=== PATIENT | male | born 1975 | race Caucasian/White ===

== ENCOUNTER 2024-08-01 10:40 | Inpatient (IN) ==
--- NOTE | 2024-08-01 11:07 | Emergency Department Note ---
Impression & Plan Pyelonephritis of left kidney, Vomiting, Abdominal pain, Blood glucose elevated ED Provider Note NAME: SARINA DIAS Jr AGE: 49 SEX: M : 1975 ARRIVES VIA: Walk-In INFORMANT: Patient ED PROVIDER(S): Uvaldo Rene DO CHIEF COMPLAINT: Fevers, shaking chills, cough congestion HPI: Patient is a 49-year-old male with a past medical history of nephrolithiasis, diabetes who presents to the ER following having a stent placed and lasering of the stones by Dr. Motta on this on the left side. Associated with this patient was having increased pain. Thursday he started having nausea and vomiting which went into Thursday. He had fevers as high as 101 Thursday and Thursday. Fevers have abated he thinks. He has been taking Tylenol and Motrin. Thursday started with cough and congestion. No chest pain or shortness of breath. No dysuria, urgency, or frequency currently. He had his stent removed and he pulled it out on his own this weekend on Thursday. ADDITIONAL HISTORY OBTAINED: Per HPI Chronic Medical/Social Conditions Affecting Care: Per HPI PAST MEDICAL HISTORY:See Below PAST SURGICAL HISTORY:See Below FAMILY HISTORY:See Below SOCIAL HISTORY:See Below HOME MEDICATIONS:See Below ALLERGIES:See Below VITALS:See Below PHYSICAL EXAMINATION: GENERAL: Sitting up in bed, alert, well appearing, well nourished, no distress, non-toxic EYE EXAM: normal conjunctiva. OROPHARYNX: mucous membranes are moist NECK: supple, no nuchal rigidity, no adenopathy, non-tender LUNGS: Clear to auscultation. Normal chest wall mechanics HEART: no murmurs, S1 normal and S2 normal ABDOMEN: abdomen soft, non-tender, normo-active bowel sounds, no masses, no rebound or guarding. BACK: Back is symmetrical on inspection and there is no deformity, no midline tenderness, no CVA tenderness. SKIN: no rashes and no bruising UPPER EXTREMITIES: upper extremities are grossly normal. LOWER EXTREMITIES: No pitting edema. NEURO EXAM: Normal sensorium, cranial nerves II-XII grossly intact, normal speech, no gross weakness of arms, no gross weakness of legs. MEDICAL DECISION MAKING: Patient is a 49-year-old male who presents ER for the above-stated complaint. IV was established and blood work was obtained. Labs show no significant leukocytosis or anemia. BMP with slightly elevated glucose at 173. Lactate was normal. Mag normal. T. bili mildly up at 1.4. LFTs were unremarkable. Troponin was negative. Pro-Ander significantly elevated at 5.3. UA consistent with UTI. Patient was given 2 g of IV Rocephin as well as IV fluids. CT abdomen pelvis shows pyelonephritis. This is consistent with patient's diffuse myalgias, arthralgias and fevers. Patient was discussed with the hospitalist for further evaluation management treatment. While in the ER patient was given morphine, Zofran and Phenergan. He was also given Toradol. Consults/Care Managements Discussions: Per [facility] Triage Nursing notes reviewed. Limited review of prior medical records performed Vital Signs: reviewed and remarkable for tachy Differential diagnosis: Differential diagnoses includes but is not limited to gastritis, peptic ulcer disease, GERD, gallbladder disease, pancreatitis, small bowel obstruction, appendicitis, diverticulitis, hernia, urinary tract infection, torsion, perforation, trauma, infectious. ER treatment provided: See below Diagnostics interpreted by me include EKG and cardiac monitoring as listed below: -Cardiac Monitoring: An order was placed for continuous cardiac monitoring. The monitor shows a rate of 101 with sinus rhythm. -ECG: Sinus tachycardia rate of 104 Normal axis No PVCs Right bundle branch block QTc 523 -Laboratory studies:Interpreted by me as stated above in MDM and shown below. Imaging studies: Xrays: As interpreted by me: Portable AP upright 1 view of the chest shows no focal M-Trate CTs show: CT abdomen pelvis as described above Procedures:none Critical Care: None Past Med/Surg History Problem List (Updated 08/01/24 @ 15:39 by Uvaldo Rene DO) Blood glucose elevated (Acute) Abdominal pain (Acute) Vomiting (Acute) Headache Pyelonephritis of left kidney (Acute) Hypogonadism in male Vitamin D deficiency Seasonal allergies Low testosterone Type 2 diabetes mellitus Lumbar radiculopathy, chronic Nephrolithiasis Medical History Obesity Low testosterone Degenerative disc disease Kidney stones Diabetes mellitus, type 2 History of stomach ulcers as a child Hx of migraines Sleep apnea cpap Hypertension Hyperlipemia Fatty liver Surgical History S/P cystoscopy with ureteral stent placement 06/30/24, [facility], left side History of colonoscopy History of tooth extraction History of tonsillectomy and adenoidectomy History of repair of hiatal hernia History of cholecystectomy H/O medial meniscus repair of right knee Family History Mother Drug abuse Ovarian cancer Diabetes Anxiety Depression Heart disease Kidney disease Lung disease Hypertension Father Prostate cancer Alzheimer disease Other No family history of adverse response to anesthesia Social History Smoking Status: Former smoker Tobacco Type: Cigarettes Age Started Using Tobacco: 19; Age Quit Using Tobacco: 32; packs per day: 0.25; Second Hand Exposure: No; Do You Dip or Chew Tobacco: No; Hx Alcohol Use: Yes Alcohol type: beer Alcohol Intake Frequency: Monthly or Less Hx Substance Use: Yes Last Used Substance Other:: 1 week ago; advised Preferred Language: [place]an Communication Ability: Effective Telecommunications Equipment Installer Required: No Beliefs That Will Affect Care: None marital status: Current Living Situation: Spouse 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 Feels Safe at Home: Yes Childhood Exposure to Second-Hand Smoke: No Diet: regular caffeine: Yes during the past year weight has: decreased > 10 lbs Dental Care, Regularly: Yes Physical Activity Frequency: 1-2 Times per Week Seatbelt Use: always Sunscreen Use: No Do you think of yourself as: straight/heterosexual Gender Identity: Male Assistive Devices: Contacts and CPAP Allergies Allergies Allergy/AdvReac Type Severity Reaction Status Date / Time Penicillins Allergy Intermediate Hives, Verified 08/01/24 13:26 nausea vancomycin Allergy Intermediate hives, Verified 08/01/24 13:26 vomitting Home Meds Home Medications Medication Instructions Recorded Confirmed azelastine 137 mcg (0.1 %) nasal 1 spray intranasal BID PRN 04/22/24 08/01/24 spray Congestion atorvastatin 20 mg tablet 20 mg PO QAM 06/21/24 08/01/24 losartan 25 mg tablet 25 mg PO QAM 06/21/24 08/01/24 fluticasone propionate 50 2 spray intranasal DAILY 06/30/24 08/01/24 mcg/actuation nasal spray,suspension acetaminophen 500 mg tablet 500 mg PO Q6H PRN Pain 08/01/24 08/01/24 dulaglutide 0.75 mg/0.5 mL 0.75 mg subcut WK 08/01/24 08/01/24 subcutaneous pen injector (Trulicity) ibuprofen 200 mg tablet 200 mg PO Q6H PRN Pain 08/01/24 08/01/24 levalbuterol tartrate 45 1 - 2 puff inhalation Q4H PRN 08/01/24 08/01/24 mcg/actuation aerosol inhaler Wheezing testosterone cypionate 100 mg/mL 100 mg subcut WK 08/01/24 08/01/24 intramuscular oil Previous Rx's Medication Instructions Recorded ergocalciferol (vitamin D2) 1,250 1,250 mcg PO WK #10 caps 07/04/24 mcg (50,000 unit) capsule (Vitamin D2) ciprofloxacin HCl 500 mg tablet 500 mg PO BID #14 tabs 07/31/24 (Cipro) tamsulosin 0.4 mg capsule 0.4 mg PO DAILY #30 caps 07/31/24 Results & Data (ED) Vital Signs Vital Signs - 24 hr 08/01/24 10:50 08/01/24 11:29 08/01/24 11:29 Temperature 36.9 C Temperature Source Oral Pulse Rate 106 H 101 H Pulse Rate [Apical] Pulse Rate from SpO2 Sensor Respiratory Rate 16 Respiratory Effort / Characteristics Non-Labored Spontaneous Respiratory Depth Normal Respiratory Pattern Blood Pressure 123/84 129/81 Blood Pressure [Right Arm] Blood Pressure Mean 97 88 Blood Pressure Mean [Right Arm] Blood Pressure Position [Right Arm] Pulse Oximetry 96 Oxygen Delivery Method Room Air Sepsis Recent Fever Within 48 Hours Yes Sepsis New/Unexplained Change in Mental Status No Sepsis Action Taken by Nursing No Action Required 08/01/24 11:31 08/01/24 11:36 08/01/24 11:45 Temperature Temperature Source Pulse Rate 94 H 94 H Pulse Rate [Apical] Pulse Rate from SpO2 Sensor 94 H 94 H Respiratory Rate 25 H 25 H Respiratory Effort / Characteristics Respiratory Depth Respiratory Pattern Blood Pressure 119/77 Blood Pressure [Right Arm] Blood Pressure Mean 90 Blood Pressure Mean [Right Arm] Blood Pressure Position [Right Arm] Pulse Oximetry 94 95 Oxygen Delivery Method Sepsis Recent Fever Within 48 Hours Sepsis New/Unexplained Change in Mental Status Sepsis Action Taken by Nursing 08/01/24 11:57 08/01/24 12:00 08/01/24 12:12 Temperature Temperature Source Pulse Rate 89 92 H Pulse Rate [Apical] Pulse Rate from SpO2 Sensor 90 92 H Respiratory Rate 23 22 Respiratory Effort / Characteristics Respiratory Depth Respiratory Pattern Blood Pressure 118/82 Blood Pressure [Right Arm] Blood Pressure Mean 93 Blood Pressure Mean [Right Arm] Blood Pressure Position [Right Arm] Pulse Oximetry 94 96 Oxygen Delivery Method Sepsis Recent Fever Within 48 Hours Sepsis New/Unexplained Change in Mental Status Sepsis Action Taken by Nursing 08/01/24 12:30 08/01/24 12:33 08/01/24 12:39 Temperature Temperature Source Pulse Rate 91 H 88 Pulse Rate [Apical] Pulse Rate from SpO2 Sensor 90 88 Respiratory Rate 25 H 23 Respiratory Effort / Characteristics Respiratory Depth Respiratory Pattern Blood Pressure 120/78 Blood Pressure [Right Arm] Blood Pressure Mean 98 Blood Pressure Mean [Right Arm] Blood Pressure Position [Right Arm] Pulse Oximetry 95 95 Oxygen Delivery Method Sepsis Recent Fever Within 48 Hours Sepsis New/Unexplained Change in Mental Status Sepsis Action Taken by Nursing 08/01/24 12:50 08/01/24 12:54 08/01/24 12:57 Temperature Temperature Source Pulse Rate 94 H 93 H Pulse Rate [Apical] 101 H Pulse Rate from SpO2 Sensor 92 H Respiratory Rate 24 20 25 H Respiratory Effort / Characteristics Respiratory Depth Normal Respiratory Pattern Blood Pressure Blood Pressure [Right Arm] 123/77 Blood Pressure Mean Blood Pressure Mean [Right Arm] 92 Blood Pressure Position [Right Arm] Pulse Oximetry 99 95 96 Oxygen Delivery Method Room Air Room Air Sepsis Recent Fever Within 48 Hours Sepsis New/Unexplained Change in Mental Status Sepsis Action Taken by Nursing 08/01/24 13:00 08/01/24 13:00 08/01/24 13:15 Temperature 37.2 C Temperature Source Oral Pulse Rate Pulse Rate [Apical] 92 H 100 H Pulse Rate from SpO2 Sensor Respiratory Rate 23 23 Respiratory Effort / Characteristics Non-Labored Spontaneous Non-Labored Spontaneous Respiratory Depth Normal Normal Respiratory Pattern Regular Regular Blood Pressure 127/80 Blood Pressure [Right Arm] 127/80 120/83 Blood Pressure Mean 94 Blood Pressure Mean [Right Arm] 95 95 Blood Pressure Position [Right Arm] Semi-fowlers Semi-fowlers Pulse Oximetry 97 96 Oxygen Delivery Method Room Air Room Air Sepsis Recent Fever Within 48 Hours Sepsis New/Unexplained Change in Mental Status Sepsis Action Taken by Nursing 08/01/24 13:15 08/01/24 13:15 08/01/24 13:30 Temperature Temperature Source Pulse Rate 97 H Pulse Rate [Apical] Pulse Rate from SpO2 Sensor 97 H Respiratory Rate 28 H Respiratory Effort / Characteristics Respiratory Depth Respiratory Pattern Blood Pressure 120/83 120/83 141/86 H Blood Pressure [Right Arm] Blood Pressure Mean 95 91 110 Blood Pressure Mean [Right Arm] Blood Pressure Position [Right Arm] Pulse Oximetry 97 Oxygen Delivery Method Sepsis Recent Fever Within 48 Hours Sepsis New/Unexplained Change in Mental Status Sepsis Action Taken by Nursing 08/01/24 13:33 08/01/24 13:39 08/01/24 13:45 Temperature Temperature Source Pulse Rate 95 H 99 H Pulse Rate [Apical] Pulse Rate from SpO2 Sensor 96 H 99 H Respiratory Rate 25 H 20 Respiratory Effort / Characteristics Respiratory Depth Respiratory Pattern Blood Pressure 132/87 Blood Pressure [Right Arm] Blood Pressure Mean 105 Blood Pressure Mean [Right Arm] Blood Pressure Position [Right Arm] Pulse Oximetry 96 96 Oxygen Delivery Method Sepsis Recent Fever Within 48 Hours Sepsis New/Unexplained Change in Mental Status Sepsis Action Taken by Nursing 08/01/24 13:48 08/01/24 13:57 08/01/24 14:00 Temperature Temperature Source Pulse Rate 96 H 100 H Pulse Rate [Apical] 102 H Pulse Rate from SpO2 Sensor 96 H 99 H Respiratory Rate 23 29 H 20 Respiratory Effort / Characteristics Non-Labored Spontaneous Respiratory Depth Normal Respiratory Pattern Regular Blood Pressure Blood Pressure [Right Arm] 128/79 Blood Pressure Mean Blood Pressure Mean [Right Arm] 95 Blood Pressure Position [Right Arm] Semi-fowlers Pulse Oximetry 95 94 92 Oxygen Delivery Method Room Air Sepsis Recent Fever Within 48 Hours Sepsis New/Unexplained Change in Mental Status Sepsis Action Taken by Nursing 08/01/24 14:00 08/01/24 14:30 08/01/24 14:45 Temperature Temperature Source Pulse Rate Pulse Rate [Apical] 105 H 106 H Pulse Rate from SpO2 Sensor Respiratory Rate 18 22 Respiratory Effort / Characteristics Non-Labored Spontaneous Respiratory Depth Normal Respiratory Pattern Regular Blood Pressure 128/79 Blood Pressure [Right Arm] 123/79 127/93 Blood Pressure Mean 94 Blood Pressure Mean [Right Arm] 93 104 Blood Pressure Position [Right Arm] Semi-fowlers Pulse Oximetry 94 96 Oxygen Delivery Method Room Air Sepsis Recent Fever Within 48 Hours Sepsis New/Unexplained Change in Mental Status Sepsis Action Taken by Nursing 08/01/24 14:50 08/01/24 15:34 Temperature 36.9 C Temperature Source Oral Pulse Rate 105 H Pulse Rate [Apical] Pulse Rate from SpO2 Sensor Respiratory Rate Respiratory Effort / Characteristics Respiratory Depth Respiratory Pattern Blood Pressure Blood Pressure [Right Arm] Blood Pressure Mean Blood Pressure Mean [Right Arm] Blood Pressure Position [Right Arm] Pulse Oximetry Oxygen Delivery Method Sepsis Recent Fever Within 48 Hours Sepsis New/Unexplained Change in Mental Status Sepsis Action Taken by Nursing Laboratory Data 08/01/24 11:23 08/01/24 11:23 Lab Results 08/01/24 08/01/24 Range/Units 11:08 11:23 WBC 8.39 (4.8-10.8) K/ul RBC 4.82 (4.70-6.10) M/uL Hgb 13.6 L (14.0-18.0) g/dl Hct 41.1 L (42.0-52.0) % MCV 85.3 (80.0-100.0) fL MCH 28.2 (25.0-34.0) pg MCHC 33.1 (32.0-36.0) g/dL RDW Std Deviation 42.9 (36.4-46.3) fL RDW Coeff of Jonathan 13.8 (11.5-14.5) % Plt Count 183 (130-400) K/uL MPV 10.4 (9.4-12.4) fL Immature Gran % (Auto) 0.5 % Neut % (Auto) 89.8 % Lymph % (Auto) 3.7 % [place] % (Auto) 5.8 % Eos % (Auto) 0.1 % Baso % (Auto) 0.1 % Neut # (Auto) 7.53 H (1.40-6.50) K/uL Lymph # (Auto) 0.31 L (1.20-3.40) K/uL [place] # (Auto) 0.49 (0.11-0.59) K/uL Eos # (Auto) 0.01 (0.00-0.50) K/uL Baso # (Auto) 0.01 (0.00-0.20) K/uL Immature Gran # (Auto) 0.04 (0.01-0.20) K/uL Sodium 137 (136-145) mmol/L Potassium 3.6 (3.5-5.1) mmol/L Chloride 103 (98-107) mmol/L Carbon Dioxide 24 (21-32) mmol/L Anion Gap 10 (3-11) BUN 12 (6-23) mg/dl Creatinine 1.02 (0.6-1.4) mg/dl Est Cr Clr Drug Dosing 122.5 ml/min eGFR 91.22 BUN/Creatinine Ratio 11.8 (10-20) Glucose 173 H (70-99(Fasting)) mg/dl Lactate 1.3 (0.4-2.0) mmol/L Calcium 9.4 (8.6-10.3) mg/dl Magnesium 1.9 (1.7-2.4) mg/dl Total Bilirubin 1.4 H (0.2-1.0) mg/dl Direct Bilirubin 0.4 H (0-0.2) mg/dl AST 21 (13-39) U/L ALT 24 (7-52) U/L Alkaline Phosphatase 85 (34-104) U/L Troponin I High Sens 15.1 (0-20) pg/ml Total Protein 7.5 (6.0-8.3) gm/dl Albumin 3.9 (3.4-5.0) gm/dl Procalcitonin 5.53 H (0-0.5) ng/ml Urine Color Dark Yellow Urine Appearance Clear (Clear) Urine pH 6.0 (4.5-7.5) Ur Specific [place] 1.023 (1.000-1.030) Urine Protein 3+ H (Negative) Urine Glucose (UA) Trace H (Negative) Urine Ketones 4+ H (Negative) Urine Blood 3+ H (Negative) Urine Nitrite Positive A (Negative) Urine Bilirubin Negative (Negative) Urine Urobilinogen Negative (Negative) Ur Leukocyte Esterase Negative (Negative) Urine WBC (Auto) 21-50 H (0-5) /hpf Urine RBC (Auto) >20 H (0-2) /hpf U Hyaline Cast (Auto) 0-2 (0-2) /lpf U Epithel Cells (Auto) 6-10 H (0-2) /hpf Urine Bacteria (Auto) None Seen (None Seen) Administered Medications Discontinued Medications Diphenhydramine HCl (Diphenhydramine 50 Mg/Ml Vial) 50 mg IV NOW STA Stop: 08/01/24 12:15 Last Admin: 08/01/24 13:09 Dose: 50 mg Documented By: TREY Hydromorphone HCl (Hydromorphone Inj 0.5 Mg/0.5 Ml Syr) 0.5 mg IV NOW STA Stop: 08/01/24 14:53 Last Admin: 08/01/24 14:56 Dose: 0.5 mg Documented By: TREY Sodium Chloride (Nss) 1,000 mls @ 999 mls/hr IV .Q1H1M JULIAN Stop: 08/01/24 13:15 Last Infusion: 08/01/24 13:50 Dose: Infused Documented By: Admin: 08/01/24 13:00 Dose: 999 mls/hr Documented By: Infusion: 08/01/24 13:00 Dose: Infused Documented By: Admin: 08/01/24 11:45 Dose: 999 mls/hr Documented By: JUAN JOSE Ceftriaxone Sodium (Rocephin) 2,000 mg in 50 mls @ 100 mls/hr IV NOW STA Stop: 08/01/24 13:03 Last Infusion: 08/01/24 13:50 Dose: Infused Documented By: Admin: 08/01/24 13:12 Dose: 100 mls/hr Documented By: TREY Promethazine HCl (Phenergan) 25 mg in 51 mls @ 204 mls/hr IV NOW STA Stop: 08/01/24 14:08 Last Infusion: 08/01/24 15:01 Dose: Infused Documented By: Admin: 08/01/24 14:41 Dose: 204 mls/hr Documented By: TREY Ioversol (Optiray 320 100ml) 92 ml IV ONCE ONE Stop: 08/01/24 12:06 Last Admin: 08/01/24 12:06 Dose: 92 ml Documented By: ESCOBAR Ketorolac Tromethamine (Ketorolac Tromethamine 15 Mg/Ml Vial) 10 mg IV NOW ONE Stop: 08/01/24 11:08 Last Admin: 08/01/24 11:44 Dose: 10 mg Documented By: JUAN JOSE Morphine Sulfate (Morphine Sulfate 4 Mg/Ml 1 Ml Carp\Vial) 4 mg IV NOW STA Stop: 08/01/24 13:31 Last Admin: 08/01/24 13:34 Dose: 4 mg Documented By: TREY Ondansetron HCl (Ondansetron Inj 2 Mg/Ml 2 Ml Vial) 4 mg IV NOW STA Stop: 08/01/24 13:31 Last Admin: 08/01/24 13:37 Dose: 4 mg Documented By: TREY Imaging Data Radiologist's Impression: Chest X-Ray 08/01/24 11:04 XR chest 1V portable CLINICAL HISTORY: Sepsis COMPARISON STUDY: None FINDINGS: Heart size and pulmonary vasculature are normal. No effusion, consolidation, or pneumothorax. IMPRESSION: No acute findings. ACT 112: Negative or not required by law. Electronically signed by: Sarina Deutsch M.D. 08/01/2024 11:16 AM Abdomen/Pelvis CT 08/01/24 11:[address] WITH IV CONTRAST CT DOSE: 1518.99 mGy.cm HISTORY: Acute generalized abdominal pain with sepsis abd pain spesis TECHNIQUE: Multiaxial CT images of the abdomen and pelvis were performed following the IV administration of 92 cc of Optiray, A dose lowering technique was utilized adhering to the principles of ALARA. COMPARISON STUDY: May 12, 2024 FINDINGS: The imaged lower chest unremarkable. There is mild subsegmental bibasilar atelectasis. No pneumatosis or pneumoperitoneum. Splenomegaly, 2.7 cm in length. Unremarkable pancreas and adrenal glands. Cholecystectomy. Hepatomegaly with hepatic steatosis. Patency of the hepatic and portal veins. Unremarkable right kidney. Left nephrolithiasis includes a 5 mm nonobstructing calculus of the superior pole and a 3 mm calculus of the inferior pole. The previously noted 9 mm calculus of the inferior poles no longer present. Perinephric inflammatory stranding with patchy enhancement of the left kidney. Minimal dilation of the left renal collecting system and ureter No ureteral calculi identified. Urothelial enhancement is noted within the left renal collecting system and ureter. Mild prostamegaly. Urinary bladder wall thickening with partial distention and mild intraluminal air. No lymphadenopathy. Mild atherosclerosis of the aorta. No bowel obstruction or bowel wall thickening. Colonic diverticulosis. Normal appendix. Unremarkable soft tissues. Annular disc bulging with spondylosis causes multilevel central canal or neural foraminal narrowing within the lumbar spine. IMPRESSION: 1. Minimal left-sided hydroureteronephrosis with findings suggestive of left- sided pyelonephritis and ureteritis with associated cystitis. Correlate with urinalysis. 2. Left nephrolithiasis. 3. The previously noted 9 mm left renal calculus is no longer present. No ureteral calculi identified. 4. Colonic diverticulosis. ACT 112: Negative or not required by law. The above report was generated using voice recognition software. It may contain grammatical, syntax or spelling errors. Electronically signed by: Rios Thurston M.D. 08/01/2024 1:19 PM Discharge Plan Visit Data Chief Complaint: Flu Like Symptoms Stated Complaint: CHILLS, BODYACHES, NAUSEA, HEADACHE ED Provider: Uvaldo Rene Discharge Problem: Pyelonephritis of left kidney, Vomiting, Abdominal pain, Blood glucose elevated Forms Stand Alone Forms: My [facility] [employer] Prescriptions Prescriptions: No Action tamsulosin 0.4 mg capsule 0.4 mg PO DAILY Qty: 30 11RF ciprofloxacin HCl [Cipro] 500 mg tablet 500 mg PO BID Qty: 14 0RF Rx Instructions: Start Date 07/31/24 x7 day supply azelastine 137 mcg (0.1 %) spray,non-aerosol 1 spray intranasal BID PRN (Reason: Congestion) Rx Instructions: administer into each nostril ergocalciferol (vitamin D2) [Vitamin D2] 1,250 mcg (50,000 unit) capsule 1,250 mcg PO WK Qty: 10 0RF Rx Instructions: Thursday atorvastatin 20 mg tablet 20 mg PO QAM losartan 25 mg tablet 25 mg PO QAM fluticasone propionate 50 mcg/actuation [place],Suspension 2 spray INTRANASAL DAILY Rx Instructions: administer into each nostril acetaminophen [Tylenol Ex Str Rapid Release] 500 mg Tablet 500 mg PO Q6H PRN (Reason: Pain) ibuprofen 200 mg Tablet 200 mg PO Q6H PRN (Reason: Pain) levalbuterol tartrate 45 mcg/actuation HFA aerosol inhaler 1 - 2 puff INHALATION Q4H PRN (Reason: Wheezing) testosterone cypionate 100 mg/mL oil 100 mg subcut WK Rx Instructions: Thursday Trulicity 0.75 mg/0.5 mL pen injector 0.75 mg subcut WK Patient Comments: takes sundays Rx Instructions: Thursday Referrals Referrals: Trang Zuniga CRNP [Primary Care Provider] - Discharge Problem: Vomiting Qualifiers: Vomiting type: unspecified Nausea presence: unspecified Qualified Code(s): R 11.10 - Vomiting, unspecified Abdominal pain Qualifiers: Abdominal location: unspecified location Qualified Code(s): R10.9 - Unspecified abdominal pain
--- NOTE | 2024-08-01 11:17 | XRay Report ---
XR chest 1V portable CLINICAL HISTORY: Sepsis COMPARISON STUDY: None FINDINGS: Heart size and pulmonary vasculature are normal. No effusion, consolidation, or pneumothora x. IMPRESSION: No acute findings. ACT 112: Negative or not required by law. Electronically signed by: Ulices Deutsch M.D. 08/01/2024 11:16 AM
[2024-08-01] MEDS: KETOROLAC TROMETHAMINE 15 MG/ML VIAL IV ONE (11:44)
[2024-08-01] MEDS: SODIUM CHLORIDE 0.9% 1,000 ML IV SCH (11:45)
[2024-08-01 11:47] LABS: Basophils # (auto) 0.01 K/uL (0.00-0.20); Basophils % (auto) 0.1 %; Eosinophils # (auto) 0.01 K/uL (0.00-0.50); Eosinophils % (auto) 0.1 %; Hematocrit (blood only) 41.1 % (42.0-52.0); Hemoglobin 13.6 g/dl (14.0-18.0); Immature Granulocytes # (auto) 0.04 K/uL (0.01-0.20); Immature Granulocytes % (auto) 0.5 %; Lymphocytes # (auto) 0.31 K/uL (1.20-3.40); Lymphocytes % (auto) 3.7 %; Mean Corpuscular Hemoglobin 28.2 pg (25.0-34.0); Mean Corpuscular Hgb Conc 33.1 g/dL (32.0-36.0); Mean Corpuscular Volume 85.3 fL (80.0-100.0); Mean Platelet Volume 10.4 fL (9.4-12.4); Monocytes # (auto) 0.49 K/uL (0.11-0.59); Monocytes % (auto) 5.8 %; Neutrophils # (auto) 7.53 K/uL (1.40-6.50); Neutrophils % (auto) 89.8 %; Platelet Count 183 K/uL (130-400); RDW Coefficient of Variation 13.8 % (11.5-14.5); RDW Standard Deviation 42.9 fL (36.4-46.3); Red Blood Count 4.82 M/uL (4.70-6.10); White Blood Count 8.39 K/ul (4.8-10.8)
[2024-08-01 11:54] LABS: Albumin Level 3.9 gm/dl (3.4-5.0); BUN Creatinine Ratio 11.8 (10-20); Bilirubin Direct 0.4 mg/dl (0-0.2); Bilirubin,Total 1.4 mg/dl (0.2-1.0); Calcium 9.4 mg/dl (8.6-10.3); Creatinine Clr Calc Pharmacy 122.5 ml/min; Magnesium 1.9 mg/dl (1.7-2.4); Potassium 3.6 mmol/L (3.5-5.1); Total Protein 7.5 gm/dl (6.0-8.3)
[2024-08-01 11:58] LABS: Appearance Urine Clear (Clear); Bacteria Urine Automated None Seen (None Seen); Bilirubin Urine Negative (Negative); Blood Urine 3+ (Negative); Cast Urine Automated 0-2 /lpf (0-2); Color Urine Dark Yellow; Glucose Urine UA Trace (Negative); Ketones Urine 4+ (Negative); Leukocyte Esterase Urine Negative (Negative); Nitrite Urine Positive (Negative); Protein Urine 3+ (Negative); RBC Urine Automated >20 /hpf (0-2); Specific Gravity Urine 1.023 (1.000-1.030); Urobilinogen Urine Negative (Negative); WBC Urine Automated 21-50 /hpf (0-5)
[2024-08-01 12:00] LABS: Troponin I High Sensitivity 15.1 pg/ml (0-20)
[2024-08-01] MEDS: OPTIRAY 320 100ml IV ONE (12:06)
[2024-08-01] MEDS: diphenhydrAMINE 50 MG/ML VIAL IV STA (13:09)
[2024-08-01] MEDS: cefTRIAXone SODIUM 2,000 MG/50 ML BAG IV STA (13:12)
--- NOTE | 2024-08-01 13:20 | CT Scan Report ---
ABDOMEN AND PELVIS CT WITH IV CONTRAST CT DOSE: 1518.99 mGy.cm HISTORY: Acute generalized abdominal pain with sepsis abd pain spesis TECHNIQUE: Multiaxial CT images of the abdomen and pelvis were performed following the IV administrat ion of 92 cc of Optiray, A dose lowering technique was utilized adhering to the principles of ALARA. COMPARISON STUDY: May 12, 2024 FINDINGS: The imaged lower chest unremarkable. There is mild subsegmental bibasilar atelectasis. No p neumatosis or pneumoperitoneum. Splenomegaly, 2.7 cm in length. Unremarkable pancreas and adrenal gla nds. Cholecystectomy. Hepatomegaly with hepatic steatosis. Patency of the hepatic and portal veins. Unremarkable right kidney. Left nephrolithiasis includes a 5 mm nonobstructing calculus of the superi or pole and a 3 mm calculus of the inferior pole. The previously noted 9 mm calculus of the inferior poles no longer present. Perinephric inflammatory stranding with patchy enhancement of the left kidne y. Minimal dilation of the left renal collecting system and ureter No ureteral calculi identified. Ur othelial enhancement is noted within the left renal collecting system and ureter. Mild prostamegaly. Urinary bladder wall thickening with partial distention and mild intraluminal air. No lymphadenopathy . Mild atherosclerosis of the aorta. No bowel obstruction or bowel wall thickening. Colonic diverticulosis. Normal appendix. Unremarkable soft tissues. Annular disc bulging with spondylosis causes multilevel central canal or neural foramin al narrowing within the lumbar spine. IMPRESSION: 1. Minimal left-sided hydroureteronephrosis with findings suggestive of left-sided pyelonephritis and ureteritis with associated cystitis. Correlate with urinalysis. 2. Left nephrolithiasis. 3. The previously noted 9 mm left renal calculus is no longer present. No ureteral calculi identified . 4. Colonic diverticulosis. ACT 112: Negative or not required by law. The above report was generated using voice recognition software. It may contain grammatical, syntax o r spelling errors. Electronically signed by: Rios Thurston M.D. 08/01/2024 1:19 PM
[2024-08-01] MEDS: MoRPHine SULFATE 4 MG/ML 1 ML CARP\\VIAL IV STA (13:34)
--- NOTE | 2024-08-01 13:34 | History & Physical Report ---
Date of Service August 01, 2024 Assessment & Plan (1) Pyelonephritis of left kidney: (2) Headache: (3) Type 2 diabetes mellitus: (4) Hypertension: Plan This patient is a 49-year-old male with a history of nephrolithiasis, HTN, DM2, HLD, vitamin D deficiency, asthma, and fatty liver who recently had left ureteral stent exchange and laser lithotripsy of a ureteral stone on 07/28. He presents to the ER with 3 days of fevers/chills, intractable nausea/vomiting, severe left flank pain, and posterior headache as well as frontal headache. He removed his left ureteral stent 1 day prior and this did help with some of the spasm pains he was having in the left flank. He is admitted for left-sided acute pyelonephritis. #Acute left pyelonephritis/UTI/recent ureterolithiasis with ureteral stent removal/N/V-with left flank pain, pyelonephritis and cystitis seen on CT A/P, recent left ureteral stone treatment and stent removal. Was treated with 2 doses of Cipro prior to admission hence the lack of bacteria on the UA but still with significant leukocyte esterase and WBCs as well as some blood. With fevers at home but no leukocytosis, normal lactate, but procalcitonin elevated at 5.5. He may also have an acute sinusitis or the headache may be related to dehydration and infection. Nonetheless, ceftriaxone also treats for acute sinusitis. N/V related to pyelonephritis and pain -Admit to medical/surgical unit -Consult urology given recent procedures and ongoing mild left ureteral hydronephrosis and infection -Continue ceftriaxone 2000 mg IV every 24 hours for both pyelonephritis and possible sinusitis -Give 2 more liters of LR at 125 mL/h for hydration as he is dry and unable to keep much down by mouth -Give clear liquids diet only for now until nausea improves -Add on Sudafed as needed for sinus congestion -IV Zofran and Compazine as needed for nausea; Tylenol and IV Dilaudid as needed for pain and headache -Follow urine and blood cultures -Continue home tamsulosin #HTN/HLD-no acute issues -Continue home atorvastatin, losartan #DM2/hypogonadism-no acute issues, has been on the same dose of Trulicity for many years and last dose was on 07/31. Also takes IM testosterone. Hgb A1c well-controlled 6.8% very recently -NovoLog supplemental insulin -Hold home Trulicity and testosterone #Vitamin D deficiency-no acute issues -Hold home vitamin D #Fatty liver/mild hyperbilirubinemia-T. bili mildly elevated 1.4 with evidence of fatty liver and mild splenomegaly on CT A/P. Has a history of cholecystectomy. No RUQ pain. No EtOH use -Needs weight loss, low carbohydrate diet -Follow LFTs #Mild asthma/FERNANDEZ/allergic rhinitis-no acute issues except possible sinusitis. CXR negative -Levalbuterol as needed -Continue Flonase and azelastine nasal sprays -Ceftriaxone for acute sinusitis as above -CPAP at bedtime DVT prophylaxis-Lovenox SQ, SCDs Disposition-admit to medical/surgical unit History of Present Illness Chief Complaint: Fever/flank pain Primary Care Provider: ALANNA Chilel This patient is a 49-year-old male with a history of nephrolithiasis, HTN, DM2, HLD, vitamin D deficiency, and fatty liver who recently had left ureteral stent exchange and laser lithotripsy of a ureteral stone on 07/28. He presents to the ER with 3 days of fevers/chills, intractable nausea/vomiting, left flank pain, and posterior headache as well as frontal headache. He removed his left ureteral stent 1 day prior and this did help with some of the spasm pains he was having in the left flank. He has been taking ibuprofen and Tylenol [id number]-cpeee for the fevers and pain as well as headache which has helped keep the temperature down but not helping much with the pain. He has not been able to eat more than 1 piece of dry toast in the last 48 hours and keeps down small sips of water at times. He is making urine but does have hematuria. He is moving his bowels and no diarrhea present. The urologist called him in Cipro of which he took 2 doses prior to presentation in the ER. He is blowing some mucus out of his nose. In the ER, he was given IV morphine, Zofran, 2 L IV fluids, IV Toradol, Phenergan, and ceftriaxone. He was found to have an abnormal urinalysis consistent with infection. CT A/P showed left pyelonephritis and mild left ureteral hydronephrosis; CXR negative. He will be admitted for left-sided acute pyelonephritis. Allergies Allergy/AdvReac Type Severity Reaction Status Date / Time Penicillins Allergy Intermediate Hives, Verified 08/01/24 13:26 nausea vancomycin Allergy Intermediate hives, Verified 08/01/24 13:26 vomitting Home Medications Medication Instructions Recorded Confirmed Type azelastine 137 mcg (0.1 %) nasal 1 spray intranasal BID PRN 04/22/24 08/01/24 History spray Congestion atorvastatin 20 mg tablet 20 mg PO QAM 06/21/24 08/01/24 History losartan 25 mg tablet 25 mg PO QAM 06/21/24 08/01/24 History fluticasone propionate 50 2 spray intranasal DAILY 06/30/24 08/01/24 History mcg/actuation nasal spray,suspension ergocalciferol (vitamin D2) 1,250 1,250 mcg PO WK #10 caps 07/04/24 08/01/24 Rx mcg (50,000 unit) capsule (Vitamin D2) ciprofloxacin HCl 500 mg tablet 500 mg PO BID #14 tabs 07/31/24 08/01/24 Rx (Cipro) tamsulosin 0.4 mg capsule 0.4 mg PO DAILY #30 caps 07/31/24 08/01/24 Rx acetaminophen 500 mg tablet 500 mg PO Q6H PRN Pain 08/01/24 08/01/24 History dulaglutide 0.75 mg/0.5 mL 0.75 mg subcut WK 08/01/24 08/01/24 History subcutaneous pen injector (Trulicity) ibuprofen 200 mg tablet 200 mg PO Q6H PRN Pain 08/01/24 08/01/24 History levalbuterol tartrate 45 1 - 2 puff inhalation Q4H PRN 08/01/24 08/01/24 History mcg/actuation aerosol inhaler Wheezing testosterone cypionate 100 mg/mL 100 mg subcut WK 08/01/24 08/01/24 History intramuscular oil Past Med/Surg History Problem List (Updated 08/01/24 @ 15:08 by Jena Mendez MD) Headache Pyelonephritis of left kidney Hypogonadism in male Vitamin D deficiency Seasonal allergies Low testosterone Type 2 diabetes mellitus Lumbar radiculopathy, chronic Nephrolithiasis Medical History Obesity Low testosterone Degenerative disc disease Kidney stones Diabetes mellitus, type 2 History of stomach ulcers as a child Hx of migraines Sleep apnea cpap Hypertension Hyperlipemia Fatty liver Surgical History S/P cystoscopy with ureteral stent placement 06/30/24, [facility], left side History of colonoscopy History of tooth extraction History of tonsillectomy and adenoidectomy History of repair of hiatal hernia History of cholecystectomy H/O medial meniscus repair of right knee Family History Mother Drug abuse Ovarian cancer Diabetes Anxiety Depression Heart disease Kidney disease Lung disease Hypertension Father Prostate cancer Alzheimer disease Other No family history of adverse response to anesthesia Social History Smoking Status: Former smoker Tobacco Type: Cigarettes Age Started Using Tobacco: 19; Age Quit Using Tobacco: 32; packs per day: 0.25; Second Hand Exposure: No; Do You Dip or Chew Tobacco: No; Hx Alcohol Use: Yes Alcohol type: beer Alcohol Intake Frequency: Monthly or Less Hx Substance Use: Yes Last Used Substance Other:: 1 week ago; advised Preferred Language: Sammarinese Communication Ability: Effective Clipman Required: No Beliefs That Will Affect Care: None marital status: Current Living Situation: Spouse 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 Feels Safe at Home: Yes Childhood Exposure to Second-Hand Smoke: No Diet: regular caffeine: Yes during the past year weight has: decreased > 10 lbs Dental Care, Regularly: Yes Physical Activity Frequency: 1-2 Times per Week Seatbelt Use: always Sunscreen Use: No Do you think of yourself as: straight/heterosexual Gender Identity: Male Assistive Devices: Contacts and CPAP Review of Systems Review of Systems: All systems reviewed & are unremarkable except as noted in HPI & below Physical Exam Constitutional: WD/WN, vitals as above Eyes: PERRL, conjunctivae normal, anicteric sclerae ENMT: external ear and nose normal, oropharynx normal Neck: trachea midline, no thyromegaly Positive TTP over bilateral posterior neck and occiput right greater than left, no rigidity, able to touch chin to chest in seated position Respiratory: normal respiratory effort, lungs clear to auscultation Cardiovascular: RRR, no murmur, no edema Chest (Breasts): Chest: normal inspection of chest Gastrointestinal (Abdomen): Inspection/Auscultation: abdomen normal to inspection and normal bowel sounds; abdomen not distended Percussion/Palpation: + abdomen tender (Mild in LUQ and LLQ without rebound or guarding) and abdomen soft Musculoskeletal: Extremities: extremities normal to inspection; no cyanosis and no clubbing Skin: no rashes, warm and dry Neurologic: moves all extremities and awake; no focal motor deficits Psychiatric: A+Ox3, euthymic affect Lymphatic: no lymphedema Results & Data Results & Data Vital Signs (Past 12 Hours) Vital Signs Temp Pulse Pulse Resp BP BP Pulse Ox 08/01/24 13:15 97 H 28 H 120/83 97 08/01/24 13:15 100 H 23 120/83 96 08/01/24 13:00 127/80 08/01/24 13:00 37.2 C 92 H 23 127/80 97 08/01/24 12:57 93 H 25 H 96 08/01/24 12:54 94 H 20 95 08/01/24 12:50 101 H 24 123/77 99 08/01/24 12:39 88 23 95 08/01/24 12:33 91 H 25 H 95 08/01/24 12:30 120/78 08/01/24 12:12 92 H 22 96 08/01/24 12:00 118/82 08/01/24 11:57 89 23 94 08/01/24 11:45 94 H 25 H 95 08/01/24 11:36 94 H 25 H 94 08/01/24 11:31 119/77 08/01/24 11:29 129/81 08/01/24 11:29 101 H 08/01/24 10:50 36.9 C 106 H 16 123/84 96 O2 Del Method 08/01/24 13:15 08/01/24 13:15 Room Air 08/01/24 13:00 08/01/24 13:00 Room Air 08/01/24 12:57 08/01/24 12:54 Room Air 08/01/24 12:50 Room Air 08/01/24 12:39 08/01/24 12:33 08/01/24 12:30 08/01/24 12:12 08/01/24 12:00 08/01/24 11:57 08/01/24 11:45 08/01/24 11:36 08/01/24 11:31 08/01/24 11:29 08/01/24 11:29 08/01/24 10:50 Room Air Laboratory Results CBC, CMP, troponin, procalcitonin Diagnostic Findings Chest x-ray and CT abdomen/pelvis reviewed ECG Additional Comments: ECG on 08/01/2024 at 11:11 AM with sinus tachycardia, rate 104, RBBB, no ischemic changes Code Status & VTE Plan Code Status Full code VTE Prophylaxis Plan VTE Prophylaxis will be ordered: Yes PG Care Time/CCT Total # of Minutes Spent Total Time Spent with Patient: Total time spent is greater than 50% in coordination of care (as documented) at patient's floor/unit and/or counseling patient: Coding Level of Care Code 35358 INT INP/OBS CARE 3/75MIN Diagnoses Pyelonephritis of left kidney N12 Headache R51.9 Type 2 diabetes mellitus E11.9 Primary hypertension I10 Hypertension type: primary hypertension (4) Hypertension Hypertension type: primary hypertension Qualified Code(s): I10 - Essential (primary) hypertension
[2024-08-01] MEDS: ONDANSETRON INJ 2 MG/ML 2 ML VIAL IV STA (13:37)
--- NOTE | 2024-08-01 14:40 | Electrocardiogram Report ---
Test Reason : Blood Pressure : */* mmHG Vent. Rate : 104 BPM Atrial Rate : 104 BPM P-R Int : 142 ms QRS Dur : 152 ms QT Int : 398 ms P-R-T Axes : 43 55 37 degrees QTcB Int : 523 ms Sinus tachycardia Right bundle branch block Abnormal ECG When compared with ECG of 30-Jun-2024 08:50, Vent. rate has increased by 44 bpm Right bundle branch block has replaced Non-specific intra-ventricular conduction block Confirmed by Jaswant Zavaleta ([id number]) on 08/01/2024 2:39:34 PM Referred By: Confirmed By: Jaswant Zavaleta
[2024-08-01] MEDS: PROMETHAZINE 25 MG/51 ML BAG IV STA (14:41)
--- NOTE | 2024-08-01 14:54 | Urology Consultation ---
Date of Consultation August 01, 2024 Assessment & Plan (1) Pyelonephritis of left kidney: 49-year-old male admitted for left pyelonephritis after recent left ureteroscopy and stone treatment; tethered stent removed on 07/31/24. Patient currently afebrile, mild tachycardia, normotensive Lab work reviewedcreatinine 1.02, no leukocytosis Urinalysis suggestive of infection with positive nitrates, RBCs, WBCs; negative for bacteria, but recently started on PO Ciprofloxacin yesterday Urine and blood cultures are pending Continue broad-spectrum antibiotics and narrow per sensitivity data when available CT abdomen pelvis suggestive of left pyelonephritis, no focal obstruction No acute intervention at this time Monitor voiding and bladder scan prn Continue supportive care, antibiotics, and medical management per hospital medicine will follow History of Present Illness Reason for Consultation: pyelonephritis, recent lithotripsy, stent removal. Requesting Physician: Dr. Mendez Attending Physician: Jena Mendez MD History of Present Illness This is a 49-year-old male who follows with urology for nephrolithiasis. He underwent left ureteroscopy on 06/30/2024 which identified a tight UPJ and stent was placed at that time. He returned to the OR for cystoscopy, left ureteroscopy, laser destruction of stone and left ureteral stent exchange on 07/28/24. He presented to the emergency department today for evaluation of nausea, vomiting and fever. On arrival to ED, he was afebrile, tachycardic, normotensive. Lab work showed no leukocytosis (WBC 8.39), neutrophils 7.53, hemoglobin 13.6, creatinine 1.02, procalcitonin 5.53. Urinalysis showed 3+ blood, positive nitrates, 21-50 WBC, >20 RBC, 6-10 epithelial cells, no bacteria seen. Urine and blood cultures obtained. Workup included CT abdomen pelvis with IV contrast which shows minimal left sided hydroureteronephrosis with findings suggestive of left pyelonephritis and ureteritis with associated cystitis. Left nephrolithiasis. Previously noted 9 mm left renal calculus no longer present. No ureteral calculi identified. ED course: IV fluids, Rocephin, diphenhydramine, ondansetron, ketorolac and morphine. He is admitted to the hospital medicine service for further management. Urology is consulted for pyelonephritis, recent lithotripsy, stent removal. Patient seen and examined in the emergency department. present. He reports having flank discomfort in the days following surgery. He reports developing symptoms of nausea, vomiting, and fever (Tmax ~101)/chills since 2 days ago. Also reports headache and congestion. Urologist enterprise solutions architect sent him course of Ciprofloxacin, but he had difficulty keeping it down due to nausea and vomiting. He removed his tethered ureteral stent per instruction yesterday. He reports that flank discomfort has improved since stent removal. He is voiding spontaneously. He has noted some hematuria, no dysuria. Allergies Allergy/AdvReac Type Severity Reaction Status Date / Time Penicillins Allergy Intermediate Hives, Verified 08/01/24 13:26 nausea vancomycin Allergy Intermediate hives, Verified 08/01/24 13:26 vomitting Home Medications Medication Instructions Recorded Confirmed Type azelastine 137 mcg (0.1 %) nasal 1 spray intranasal BID PRN 04/22/24 08/01/24 History spray Congestion atorvastatin 20 mg tablet 20 mg PO QAM 06/21/24 08/01/24 History losartan 25 mg tablet 25 mg PO QAM 06/21/24 08/01/24 History fluticasone propionate 50 2 spray intranasal DAILY 06/30/24 08/01/24 History mcg/actuation nasal spray,suspension ergocalciferol (vitamin D2) 1,250 1,250 mcg PO WK #10 caps 07/04/24 08/01/24 Rx mcg (50,000 unit) capsule (Vitamin D2) ciprofloxacin HCl 500 mg tablet 500 mg PO BID #14 tabs 07/31/24 08/01/24 Rx (Cipro) tamsulosin 0.4 mg capsule 0.4 mg PO DAILY #30 caps 07/31/24 08/01/24 Rx acetaminophen 500 mg tablet 500 mg PO Q6H PRN Pain 08/01/24 08/01/24 History dulaglutide 0.75 mg/0.5 mL 0.75 mg subcut WK 08/01/24 08/01/24 History subcutaneous pen injector (Trulicity) ibuprofen 200 mg tablet 200 mg PO Q6H PRN Pain 08/01/24 08/01/24 History levalbuterol tartrate 45 1 - 2 puff inhalation Q4H PRN 08/01/24 08/01/24 History mcg/actuation aerosol inhaler Wheezing testosterone cypionate 100 mg/mL 100 mg subcut WK 08/01/24 08/01/24 History intramuscular oil Patient History Medical History Obesity Low testosterone Degenerative disc disease Kidney stones Diabetes mellitus, type 2 History of stomach ulcers as a child Hx of migraines Sleep apnea cpap Hypertension Hyperlipemia Fatty liver Surgical History S/P cystoscopy with ureteral stent placement 06/30/24, [facility], left side History of colonoscopy History of tooth extraction History of tonsillectomy and adenoidectomy History of repair of hiatal hernia History of cholecystectomy H/O medial meniscus repair of right knee Family History Mother Drug abuse Ovarian cancer Diabetes Anxiety Depression Heart disease Kidney disease Lung disease Hypertension Father Prostate cancer Alzheimer disease Other No family history of adverse response to anesthesia Social History Smoking Status: Former smoker Tobacco Type: Cigarettes Age Started Using Tobacco: 19; Age Quit Using Tobacco: 32; packs per day: 0.25; Second Hand Exposure: No; Do You Dip or Chew Tobacco: No; Hx Alcohol Use: Yes Alcohol type: beer Alcohol Intake Frequency: Monthly or Less Hx Substance Use: Yes Last Used Substance Other:: 1 week ago; advised Preferred Language: Bengali Communication Ability: Effective [employer]visor [employer] Required: No Beliefs That Will Affect Care: None marital status: Current Living Situation: Spouse 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 Feels Safe at Home: Yes Childhood Exposure to Second-Hand Smoke: No Diet: regular caffeine: Yes during the past year weight has: decreased > 10 lbs Dental Care, Regularly: Yes Physical Activity Frequency: 1-2 Times per Week Seatbelt Use: always Sunscreen Use: No Do you think of yourself as: straight/heterosexual Gender Identity: Male Assistive Devices: Contacts and CPAP Review of Systems Review of Systems: All systems reviewed & are unremarkable except as noted in HPI & below Physical Exam Constitutional: well developed and well nourished; no acute distress Respiratory: normal respiratory effort; no respiratory distress and no labored breathing Gastrointestinal (Abdomen): Inspection/Auscultation: abdomen normal to inspection Musculoskeletal: Head/Neck/Chest: normocephalic Neurologic: moves all extremities and awake Psychiatric: Orientation: alert and oriented x 3 Results & Data Vital Signs (Past 12 Hours) Vital Signs Temp Pulse Pulse Resp BP BP Pulse Ox 08/01/24 14:30 105 H 18 123/79 94 08/01/24 14:00 128/79 08/01/24 14:00 102 H 20 128/79 92 08/01/24 13:57 100 H 29 H 94 08/01/24 13:48 96 H 23 95 08/01/24 13:45 132/87 08/01/24 13:39 99 H 20 96 08/01/24 13:33 95 H 25 H 96 08/01/24 13:30 141/86 H 08/01/24 13:15 120/83 08/01/24 13:15 97 H 28 H 120/83 97 08/01/24 13:15 100 H 23 120/83 96 08/01/24 13:00 127/80 08/01/24 13:00 37.2 C 92 H 23 127/80 97 08/01/24 12:57 93 H 25 H 96 08/01/24 12:54 94 H 20 95 08/01/24 12:50 101 H 24 123/77 99 08/01/24 12:39 88 23 95 08/01/24 12:33 91 H 25 H 95 08/01/24 12:30 120/78 08/01/24 12:12 92 H 22 96 08/01/24 12:00 118/82 08/01/24 11:57 89 23 94 08/01/24 11:45 94 H 25 H 95 08/01/24 11:36 94 H 25 H 94 08/01/24 11:31 119/77 08/01/24 11:29 129/81 08/01/24 11:29 101 H 08/01/24 10:50 36.9 C 106 H 16 123/84 96 O2 Del Method 08/01/24 14:30 Room Air 08/01/24 14:00 08/01/24 14:00 Room Air 08/01/24 13:57 08/01/24 13:48 08/01/24 13:45 08/01/24 13:39 08/01/24 13:33 08/01/24 13:30 08/01/24 13:15 08/01/24 13:15 08/01/24 13:15 Room Air 08/01/24 13:00 08/01/24 13:00 Room Air 08/01/24 12:57 08/01/24 12:54 Room Air 08/01/24 12:50 Room Air 08/01/24 12:39 08/01/24 12:33 08/01/24 12:30 08/01/24 12:12 08/01/24 12:00 08/01/24 11:57 08/01/24 11:45 08/01/24 11:36 08/01/24 11:31 08/01/24 11:29 08/01/24 11:29 08/01/24 10:50 Room Air PG Care Time/CCT Total # of Minutes Spent Total Time Spent with Patient: Total time spent is greater than 50% in coordination of care (as documented) at patient's floor/unit and/or counseling patient: Coding Level of Care Code 36937 IN/OBS CONSULT LVL 4,60M Diagnoses Pyelonephritis of left kidney N12
[2024-08-01] MEDS: HYDROmorphone INJ 0.5 MG/0.5 ML SYR IV STA (14:56)
[2024-08-01] MEDS: ACETAMINOPHEN 500 MG TAB PO STA (17:05)
[2024-08-01] MEDS ORDERED: GLUCAGON FOR INJ 1 MG VIAL SQ PRN (17:36)
[2024-08-01] MEDS ORDERED: DEXTROSE 50% 50 ML SYRINGE IV PRN (17:36)
[2024-08-01] MEDS ORDERED: GLUCOSE 40% GEL 15 GM TUBE PO PRN (17:36)
[2024-08-01] MEDS ORDERED: GLUCOSE 10 TAB/TUBE PO PRN (17:36)
[2024-08-01] MEDS ORDERED: CARBOHYDRATES FOR HYPOGLYCEMIA PO PRN (17:36)
[2024-08-01] MEDS ORDERED: POLYETHYLENE (MIRALAX) 17 GM PACK PO PRN (17:36)
[2024-08-01] MEDS ORDERED: ALUMINUM/MAGNESIUM SUSP 30 ML UDC PO PRN (17:36)
[2024-08-01] MEDS ORDERED: MAGNESIUM HYDROXIDE SUSP 30 ML UDC PO PRN (17:36)
[2024-08-01] MEDS ORDERED: MELATONIN 3 MG TAB PO PRN (17:36)
[2024-08-01] MEDS ORDERED: LEVALBUTEROL TARTRATE 15 GM HFA.AER.AD INH PRN (17:36)
[2024-08-01] MEDS: HYDROmorphone INJ 0.5 MG/0.5 ML SYR IV PRN (18:27)
[2024-08-01] MEDS: LACTATED RINGER'S 1,000 ML IV SCH (18:30)
[2024-08-01] MEDS: INSULIN ASPART PER UNIT CHARGE SC SCH (18:42)
[2024-08-01] MEDS: ENOXAPARIN INJ 40 MG/0.4 ML SYR SQ SCH (21:03)
[2024-08-01] MEDS: AZELASTINE HCL 0.1% NASAL 200 SPRAYS/27,400 MCG BTL NAE PRN (21:04)
[2024-08-01] MEDS: PSEUDOEPHEDRINE HCL 30 MG TAB PO PRN (22:20)
[2024-08-01] MEDS: ONDANSETRON INJ 2 MG/ML 2 ML VIAL IV PRN (23:41)
[2024-08-02] MEDS: ACETAMINOPHEN 500 MG TAB PO PRN (02:01)
[2024-08-02 07:42] LABS: Basophils # (auto) 0.02 K/uL (0.00-0.20); Basophils % (auto) 0.2 %; Eosinophils # (auto) 0.05 K/uL (0.00-0.50); Eosinophils % (auto) 0.5 %; Hematocrit (blood only) 39.1 % (42.0-52.0); Hemoglobin 12.6 g/dl (14.0-18.0); Immature Granulocytes # (auto) 0.06 K/uL (0.01-0.20); Immature Granulocytes % (auto) 0.6 %; Lymphocytes # (auto) 1.12 K/uL (1.20-3.40); Lymphocytes % (auto) 12.1 %; Mean Corpuscular Hemoglobin 27.9 pg (25.0-34.0); Mean Corpuscular Hgb Conc 32.2 g/dL (32.0-36.0); Mean Corpuscular Volume 86.7 fL (80.0-100.0); Mean Platelet Volume 10.1 fL (9.4-12.4); Monocytes % (auto) 10.8 %; Neutrophils # (auto) 6.99 K/uL (1.40-6.50); Neutrophils % (auto) 75.8 %; Platelet Count 187 K/uL (130-400); RDW Coefficient of Variation 14.3 % (11.5-14.5); RDW Standard Deviation 45.3 fL (36.4-46.3); Red Blood Count 4.51 M/uL (4.70-6.10); White Blood Count 9.24 K/ul (4.8-10.8)
[2024-08-02 08:01] LABS: Albumin Level 3.6 gm/dl (3.4-5.0); BUN Creatinine Ratio 14.2 (10-20); Bilirubin Direct 0.1 mg/dl (0-0.2); Bilirubin,Total 0.8 mg/dl (0.2-1.0); Calcium 8.7 mg/dl (8.6-10.3); Creatinine Clr Calc Pharmacy 118.8 ml/min; Potassium 3.4 mmol/L (3.5-5.1); Total Protein 7.1 gm/dl (6.0-8.3)
[2024-08-02] MEDS: HYDROmorphone INJ 0.5 MG/0.5 ML SYR IV PRN ×2 (08:05→18:09)
[2024-08-02] MEDS: PROCHLORPERAZINE 10 MG in SYRINGE 8 ML IV PRN (08:05)
--- NOTE | 2024-08-02 08:33 | CT Scan Report ---
CT head/brain wo con CLINICAL HISTORY: severe headache. TECHNIQUE: Multiple axial CT images of the head were obtained without contrast. A dose lowering tech nique was utilized adhering to the principles of ALARA. CT DOSE: 1281.91 mGy.cm COMPARISON: None FINDINGS: No intracranial hemorrhage seen. No mass effect, midline shift, or hydrocephalus. No skull fracture seen. Visualized paranasal sinuses and mastoid air cells are clear. IMPRESSION: No acute findings. ACT 112: Negative or not required by law. The above report was generated using voice recognition software. It may contain grammatical, syntax o r spelling errors. Electronically signed by: Ulices Deutsch M.D. 08/02/2024 8:32 AM
--- NOTE | 2024-08-02 08:35 | CT Scan Report ---
SINUS CT HISTORY: Acute headache with facial pain and reported sinus disease sinus headache, pressure,fever TECHNIQUE: Multiaxial CT images of the paranasal sinuses were performed and reformatted in the garcia l plane without the use of contrast. A dose lowering technique was utilized adhering to the principl es of BARB. COMPARISON: Head CT of same day FINDINGS: Frontal sinuses and frontal ethmoidal recesses are clear. Note is made of a metopic suture. Moderate mucosal thickening of the ethmoid air cells, right greater than left. Minimal mucosal thick ening of the inferior right maxillary sinus. The left maxillary sinus is clear. Sphenoid sinuses and sinus outflow tracts are clear. The mastoid air cells are clear. The bilateral ostiomeatal units are patent. Minimal rightward bowin g of the nasal septum. The orbits are unremarkable. IMPRESSION: 1. Mild mucosal thickening of the ethmoid air cells and inferior right maxillary sinus. 2. Patent sinus outflow tracts. ACT 112: Negative or not required by law. Electronically signed by: Rios Thurston M.D. 08/02/2024 8:33 AM
[2024-08-02] MEDS: TAMSULOSIN HCL 0.4 MG CAP PO SCH (08:51)
[2024-08-02] MEDS: LOSARTAN POTASSIUM 25 MG TAB PO SCH (08:51)
[2024-08-02] MEDS: ATORVASTATIN 20 MG TAB PO SCH (08:52)
[2024-08-02] MEDS: FLUTICASONE PROPIONATE NA SPR 16 GM BTL NAE SCH (08:53)
[2024-08-02] MEDS: POTASSIUM CHLORIDE / WTR 10 MEQ/100 ML PLCT IV ONE (08:59)
--- NOTE | 2024-08-02 09:42 | Urology Progress Note ---
Date of Service August 02, 2024 Assessment & Plan (1) Pyelonephritis of left kidney: Plan: 49-year-old male admitted for left pyelonephritis after recent left ureteroscopy and stone treatment; tethered stent removed on 07/31/24. Patient currently afebrile (Tmax 37.9 yesterday evening), hemodynamically stable Subjectively feeling better overall, but continues to have headache, nausea and fever/chills Lab work reviewedcreatinine 1.06, no leukocytosis Urine and blood cultures are pending Continue broad-spectrum antibiotics and narrow per sensitivity data when available CT suggestive of left pyelonephritis, no obstruction No acute intervention at this time Continue with supportive care, antibiotics, and medical management per hospital medicine will follow Admission and Anticipated Discharge Date Admission Date: August 01, 2024 Subjective Patient seen and examined at bedside this morning. He reports feeling some improvement today. Reports sweats and chills overnight. Continues to have some nausea. Flank pain improved. Continues to have headache. He is voiding spontaneously, no dysuria. Review of Systems Constitutional: as per Subjective / HPI Genitourinary: + as per Subjective / HPI Physical Exam Constitutional: well developed and well nourished; no acute distress Respiratory: normal respiratory effort; no respiratory distress and no labored breathing Gastrointestinal (Abdomen): Inspection/Auscultation: abdomen normal to inspection Musculoskeletal: Head/Neck/Chest: normocephalic Neurologic: moves all extremities and awake Psychiatric: Orientation: alert and oriented x 3 Results & Data Vital Signs (Past 12 Hours) Vital Signs Temp Pulse Resp BP Pulse Ox O2 Del Method 08/02/24 06:59 37.1 C 98 H 20 142/91 H 97 Room Air 08/01/24 22:33 36.5 C 80 18 132/81 99 Room Air PG Care Time/CCT Total # of Minutes Spent Total Time Spent with Patient: Total time spent is greater than 50% in coordination of care (as documented) at patient's floor/unit and/or counseling patient: Coding Level of Care Code 34586 SUB INP/OBS CARE 06/04MIN Diagnoses Pyelonephritis of left kidney N12
[2024-08-02] MEDS: cefTRIAXone SODIUM 2,000 MG/50 ML BAG IV SCH (12:21)
--- NOTE | 2024-08-02 14:22 | Hospitalist Progress Note ---
Date of Service August 02, 2024 Assessment & Plan (1) Pyelonephritis of left kidney: (2) Headache: (3) Type 2 diabetes mellitus: (4) Hypertension: Plan This patient is a 49-year-old male with a history of nephrolithiasis, HTN, DM2, HLD, vitamin D deficiency, asthma, and fatty liver who recently had left ureteral stent exchange and laser lithotripsy of a ureteral stone on 07/28. He presents to the ER with 3 days of fevers/chills, intractable nausea/vomiting, severe left flank pain, and posterior headache as well as frontal headache. He removed his left ureteral stent 1 day prior and this did help with some of the spasm pains he was having in the left flank. He is admitted for left-sided acute pyelonephritis. #Acute left pyelonephritis/UTI/recent ureterolithiasis with ureteral stent removal/N/V/Acute sinusitis/Headache-with left flank pain, pyelonephritis and cystitis seen on CT A/P, recent left ureteral stone treatment and stent removal. Was treated with 2 doses of Cipro prior to admission hence the lack of bacteria on the UA but still with significant leukocyte esterase and WBCs as well as some blood. The Cipro may have also caused sterility of urine and blood cxs as no growth to date. With fevers but no leukocytosis, normal lactate, and procalcitonin elevated at 5.5. He also has an acute sinusitis with headache which may be related also to dehydration and infection. Nonetheless, ceftriaxone also treats for acute sinusitis. N/V related to pyelonephritis and pain is now improving with IV compazine and IVFs Consult urology given recent procedures and ongoing mild left ureteral hydronephrosis and infection--> appreciated-recommends ongoing treatment as no obstruction, no need for intervention -Continue ceftriaxone 2000 mg IV every 24 hours for both pyelonephritis and acute sinusitis -advance diet to DMII -continue on Sudafed as needed for sinus congestion -IV Zofran and Compazine as needed for nausea; Tylenol and IV Dilaudid as needed for pain and headache-increase Dilaudid to 1mg IV q4h prn -continue to follow urine and blood cultures -Continue home tamsulosin #HTN/HLD-no acute issues -Continue home atorvastatin, losartan #DM2/hypogonadism-no acute issues, has been on the same dose of Trulicity for many years and last dose was on 07/31. Also takes IM testosterone. Hgb A1c well-controlled 6.8% very recently -continue NovoLog supplemental insulin -Hold home Trulicity and testosterone -adv to ADA diet #Vitamin D deficiency-no acute issues -Hold home vitamin D #Fatty liver/mild hyperbilirubinemia-T. bili mildly elevated 1.4 with evidence of fatty liver and mild splenomegaly on CT A/P. Has a history of cholecystectomy. No RUQ pain. No EtOH use. TBili down to normal now -Needs weight loss, low carbohydrate diet -Follow LFTs as outpt #Mild asthma/FERNANDEZ/allergic rhinitis-no acute issues except acute sinusitis. CXR negative -Levalbuterol as needed -Continue Flonase and azelastine nasal sprays -Ceftriaxone for acute sinusitis as above -CPAP at bedtime DVT prophylaxis-Lovenox SQ, SCDs Disposition-continued stay medical/surgical unit, possible discharge to home on 08/03 if BCxs remain no growth and fevers resolved, tolerating diet Admission and Anticipated Discharge Date Admission Date: August 01, 2024 Anticipated date of discharge: 08/03/24 Subjective Pt had dry heaves and nausea through the night along with a fever and chills. Headache was severe this morning along with posterior neck and head pain. Finally feeling much better after higher dose of dilaudid and received IV compazine. Moved his bowels this AM. Pain in flank and abdomen improved. Review of Systems Review of Systems: All systems reviewed & are unremarkable except as noted in HPI & below Physical Exam Constitutional: WD/WN, vitals as above Neck: trachea midline, no thyromegaly Respiratory: normal respiratory effort, lungs clear to auscultation Cardiovascular: RRR, no murmur, no edema Chest (Breasts): Chest: normal inspection of chest Gastrointestinal (Abdomen): Inspection/Auscultation: abdomen normal to inspection and normal bowel sounds; abdomen not distended Percussion/Palpation: abdomen soft; abdomen nontender and no CVA tenderness Musculoskeletal: Extremities: extremities normal to inspection; no cyanosis and no clubbing Skin: no rashes, warm and dry Neurologic: moves all extremities and awake; no focal motor deficits Psychiatric: A+Ox3, euthymic affect Lymphatic: no lymphedema Results & Data Results & Data Vital Signs (Past 12 Hours) Vital Signs Temp Pulse Resp BP Pulse Ox O2 Del Method 08/02/24 13:39 37.4 C 90 18 130/84 94 Room Air 08/02/24 11:19 36.9 C 91 H 17 132/77 92 Room Air 08/02/24 06:59 37.1 C 98 H 20 142/91 H 97 Room Air Laboratory Results CBC, CMP, urine and blood cxs reviewed PG Care Time/CCT Total # of Minutes Spent Total Time Spent with Patient: Total time spent is greater than 50% in coordination of care (as documented) at patient's floor/unit and/or counseling patient: Coding Level of Care Code 15849 SUB INP/OBS CARE 2/35MIN Diagnoses Pyelonephritis of left kidney N12 Headache R51.9 Type 2 diabetes mellitus E11.9 Primary hypertension I10 Hypertension type: primary hypertension (4) Hypertension Hypertension type: primary hypertension Qualified Code(s): I10 - Essential (primary) hypertension
[2024-08-03 06:49] LABS: A calco-baum cmplx NotReported Not Detected (NotDetected); Bact fragilis Not Reported Not Detected (NotDetected); Blood Culture Id Panel See PCR Comment (NotDetected); C auris Not Reported Not Detected (NotDetected); CTX-M Resistant Gene DETECTED (NotDetected); Calbicans Not Reported Not Detected (NotDetected); Candida glabrata Not Reported Not Detected (NotDetected); Candida krusei Not Reported Not Detected (NotDetected); Cneoformans/gatti Not Reported Not Detected (NotDetected); Cparapsilosis Not Reported Not Detected (NotDetected); E cloacae compx Not Reported Not Detected (NotDetected); Efaecalis Not Reported Not Detected (NotDetected); Efaecium Not Reported Not Detected (NotDetected); Enterobacterales DETECTED (NotDetected); Enterobacterales Not Reported DETECTED (NotDetected); Escherichia coli Not Reported DETECTED (NotDetected); H influenzae Not Reported Not Detected (NotDetected); IMP Resistant Gene Not Detected (NotDetected); K aerogenes Not Reported Not Detected (NotDetected); KPC Resistant Gene Not Detected (NotDetected); Koxytoca Not Reported Not Detected (NotDetected); Kpneumoniae grp Not Reported Not Detected (NotDetected); Lmonocyt Not Reported Not Detected (NotDetected); N meningitidis Not Reported Not Detected (NotDetected); NDM Resistant Gene Not Detected (NotDetected); OXA 48 Like Resistant Gene Not Detected (NotDetected); P aeruginosa Not Reported Not Detected (NotDetected); Proteus spp Not Reported Not Detected (NotDetected); Salmonella spp Not Reported Not Detected (NotDetected); Staph lugdunensis Not Reported Not Detected (NotDetected); Staph spp. Not Reported Not Detected (NotDetected); Staphaureus Not Reported Not Detected (NotDetected); Staphepi Not Reported Not Detected (NotDetected); Stenmaltophilia Not Reported Not Detected (NotDetected); Strep agal(GrpB) Not Reported Not Detected (NotDetected); Strep pneum Not Reported Not Detected (NotDetected); Strep pyog (GrpA) Not Reported Not Detected (NotDetected); Strep spp Not Reported Not Detected (NotDetected); VIM Resistant Gene Not Detected (NotDetected); mcr-1 Colistin Resistant Gene Not Detected (NotDetected)
[2024-08-03 08:15] LABS: Basophils # (auto) 0.03 K/uL (0.00-0.20); Basophils % (auto) 0.3 %; Eosinophils # (auto) 0.11 K/uL (0.00-0.50); Hematocrit (blood only) 34.9 % (42.0-52.0); Hemoglobin 11.6 g/dl (14.0-18.0); Immature Granulocytes # (auto) 0.07 K/uL (0.01-0.20); Immature Granulocytes % (auto) 0.7 %; Lymphocytes # (auto) 1.16 K/uL (1.20-3.40); Lymphocytes % (auto) 10.9 %; Mean Corpuscular Hemoglobin 28.3 pg (25.0-34.0); Mean Corpuscular Hgb Conc 33.2 g/dL (32.0-36.0); Mean Corpuscular Volume 85.1 fL (80.0-100.0); Mean Platelet Volume 10.1 fL (9.4-12.4); Monocytes # (auto) 1.24 K/uL (0.11-0.59); Monocytes % (auto) 11.6 %; Neutrophils # (auto) 8.05 K/uL (1.40-6.50); Neutrophils % (auto) 75.5 %; Platelet Count 204 K/uL (130-400); RDW Coefficient of Variation 14.2 % (11.5-14.5); RDW Standard Deviation 43.9 fL (36.4-46.3); White Blood Count 10.66 K/ul (4.8-10.8)
[2024-08-03 08:33] LABS: BUN Creatinine Ratio 13.5 (10-20); Calcium 8.3 mg/dl (8.6-10.3); Creatinine Clr Calc Pharmacy 141.4 ml/min; Potassium 3.2 mmol/L (3.5-5.1)
[2024-08-03] MEDS: ERTAPENEM 1000MG 1,000 MG/10 ML SYR IV SCH (08:37)
--- NOTE | 2024-08-03 09:36 | Infectious Disease Consult ---
Date of Consultation August 03, 2024 Assessment & Plan (1) Pyelonephritis of left kidney: (2) E coli bacteremia: Plan Problems: #L pyelonephritis/ureteritis #L hydroureteronephrosis #E coli bacteremia #Nephrolithiasis s/p L ureteral stent (06/30), L ureteral stent exchange and laser lithotripsy (07/28) Micro: 08/01 BCx x2: GNRs in 1/2 sets. Biofire +ESBL E coli 08/01 UCx: NG Abx: Ertapenem 08/03 - present Ceftriaxone 08/01 - 08/02 49 yo M with history of HTN, DM2, HLD, fatty liver, nephrolithiasis s/p L ureteral stent (06/30/24), then L ureteral stent exchange and laser lithotripsy (07/28/24) who presented on 08/01 with 3 days of fevers, chills, intractable N/V, found to have L hydroureteronephrosis with L pyelonephritis/ureteritis, c/b ESBL E coli bacteremia. Pt states he took an antibiotic prior to removal of his ureteral stent on 07/31, but forgot the name of it, perhaps TMP/SMX. He got in contact with Urology on Thursday night and was prescribed ciprofloxacin, which he took. On presentation, pt was afebrile, HR 106. Labs showed WBC 8.39, procalcitonin 5.53. UA with 21-50 WBCs. Blood cultures collected. CT AP with IV contrast with minimal L sided hydroureteronephrosis with findings suggestive of L sided pyelonephritis and ureteritis with associated cystitis, L nephrolithiasis. Pt initially started on ceftriaxone. Blood cultures grew GNRs in 1/4 sets, with Biofire + ESBL E coli, so antibiotics were switched to ertapenem on 08/03. Recommendations: - Continue ertapenem 1 g q24h - Follow-up ESBL E coli sensitivities to assess whether there are PO antibiotic options on discharge Will continue to follow. Consultation Information Consultation was provided via telemedicine using two-way real-time interactive telecommunication between the patient and the telemedicine provider. For the duration of the visit, the provider was performing the assessment from a different facility than the patient. This includesuse of bluetooth stethoscope forauscultationperformed by the telepresenter that the telemedicine provider can hear if described in the physical exam. [employer] contact information: Please call [facility] . (Phone Number For Physician Use Only) After establishing a telemedicine visit, patient was: Patient was verified with two unique identifiers, Patient/authorized rep acknowledged consent and understanding and Gave permission to continue telehealth session Time Spent with Patient: Initial => 55 min History of Present Illness Reason for Consultation: E coli bacteremia Attending Physician: Jena Mendez MD History of Present Illness 49 yo M with history of HTN, DM2, HLD, fatty liver, nephrolithiasis s/p L ureteral stent (06/30/24), then L ureteral stent exchange and laser lithotripsy (07/28/24) who presented on 08/01 with 3 days of fevers, chills, intractable N/V. Pt states he took an antibiotic prior to removal of his ureteral stent on 07/31, but forgot the name of it, perhaps TMP/SMX. He got in contact with Urology on Thursday night and was prescribed ciprofloxacin, which he took. On presentation, pt was afebrile, HR 106. Labs showed WBC 8.39, procalcitonin 5.53. UA with 21-50 WBCs. Blood cultures collected. CT AP with IV contrast with minimal L sided hydroureteronephrosis with findings suggestive of L sided pyelonephritis and ureteritis with associated cystitis, L nephrolithiasis. Pt initially started on ceftriaxone. Blood cultures grew GNRs in 1/4 sets, with Biofire + ESBL E coli, so antibiotics were switched to ertapenem on 08/03. Allergies Allergy/AdvReac Type Severity Reaction Status Date / Time Penicillins Allergy Intermediate Hives, Verified 08/01/24 13:26 nausea vancomycin Allergy Intermediate hives, Verified 08/01/24 13:26 vomitting Home Medications Medication Instructions Recorded Confirmed Type azelastine 137 mcg (0.1 %) nasal 1 spray intranasal BID PRN 04/22/24 08/01/24 History spray Congestion atorvastatin 20 mg tablet 20 mg PO QAM 06/21/24 08/01/24 History losartan 25 mg tablet 25 mg PO QAM 06/21/24 08/01/24 History fluticasone propionate 50 2 spray intranasal DAILY 06/30/24 08/01/24 History mcg/actuation nasal spray,suspension ergocalciferol (vitamin D2) 1,250 1,250 mcg PO WK #10 caps 07/04/24 08/01/24 Rx mcg (50,000 unit) capsule (Vitamin D2) ciprofloxacin HCl 500 mg tablet 500 mg PO BID #14 tabs 07/31/24 08/01/24 Rx (Cipro) tamsulosin 0.4 mg capsule 0.4 mg PO DAILY #30 caps 07/31/24 08/01/24 Rx acetaminophen 500 mg tablet 500 mg PO Q6H PRN Pain 08/01/24 08/01/24 History dulaglutide 0.75 mg/0.5 mL 0.75 mg subcut WK 08/01/24 08/01/24 History subcutaneous pen injector (Trulicity) ibuprofen 200 mg tablet 200 mg PO Q6H PRN Pain 08/01/24 08/01/24 History levalbuterol tartrate 45 1 - 2 puff inhalation Q4H PRN 08/01/24 08/01/24 History mcg/actuation aerosol inhaler Wheezing testosterone cypionate 100 mg/mL 100 mg subcut WK 08/01/24 08/01/24 History intramuscular oil Patient History Medical History Obesity Low testosterone Degenerative disc disease Kidney stones Diabetes mellitus, type 2 History of stomach ulcers as a child Hx of migraines Sleep apnea cpap Hypertension Hyperlipemia Fatty liver Surgical History S/P cystoscopy with ureteral stent placement 06/30/24, [facility], left side History of colonoscopy History of tooth extraction History of tonsillectomy and adenoidectomy History of repair of hiatal hernia History of cholecystectomy H/O medial meniscus repair of right knee Family History Mother Drug abuse Ovarian cancer Diabetes Anxiety Depression Heart disease Kidney disease Lung disease Hypertension Father Prostate cancer Alzheimer disease Other No family history of adverse response to anesthesia Social History Smoking Status: Former smoker Tobacco Type: Cigarettes Age Started Using Tobacco: 19; Age Quit Using Tobacco: 32; packs per day: 0.25; Second Hand Exposure: Yes; Do You Dip or Chew Tobacco: No; Hx Alcohol Use: Yes Alcohol type: beer Alcohol Intake Frequency: Monthly or Less Hx Substance Use: No Preferred Language: [place] Communication Ability: Effective Compensator Worker Required: No Beliefs That Will Affect Care: None marital status: Current Living Situation: Spouse 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 Feels Safe at Home: Yes Childhood Exposure to Second-Hand Smoke: No Diet: regular caffeine: Yes during the past year weight has: decreased > 10 lbs Dental Care, Regularly: Yes Physical Activity Frequency: 1-2 Times per Week Seatbelt Use: always Sunscreen Use: No Do you think of yourself as: straight/heterosexual Gender Identity: Male Assistive Devices: None Review of System A complete ROS was performed and is negative except as mentioned in the HPI. Physical Exam Physical Exam: GEN: laying in bed in NAD RESP: No increased work of breathing NEURO: Alert and oriented. Answers all questions appropriately. Speech not slurred. PSYCH: Normal mood, affect appropriate. Results & Data Vital Signs (Past 12 Hours) Vital Signs Temp Pulse Pulse Resp BP BP Pulse Ox 08/03/24 08:20 89 18 130/79 92 08/03/24 07:24 37.1 C 94 H 16 146/74 H 93 08/03/24 00:58 O2 Del Method 08/03/24 08:20 Room Air 08/03/24 07:24 Room Air 08/03/24 00:58 Room Air Laboratory Results Short CBC 08/03/24 Range/Units 07:40 WBC 10.66 (4.8-10.8) K/ul Hgb 11.6 L (14.0-18.0) g/dl Hct 34.9 L (42.0-52.0) % Plt Count 204 (130-400) K/uL BMP 08/03/24 07:40 Sodium 134 L Potassium 3.2 L Chloride 99 Carbon Dioxide 27 BUN 12 Creatinine 0.89 Glucose 210 H Calcium 8.3 L Diagnostic Findings Chest X-Ray 08/01/24 11:04 XR chest 1V portable CLINICAL HISTORY: Sepsis COMPARISON STUDY: None FINDINGS: Heart size and pulmonary vasculature are normal. No effusion, consolidation, or pneumothorax. IMPRESSION: No acute findings. ACT 112: Negative or not required by law. Electronically signed by: Ulices Deutsch M.D. 08/01/2024 11:16 AM Abdomen/Pelvis CT 08/01/24 11:[address] WITH IV CONTRAST CT DOSE: 1518.99 mGy.cm HISTORY: Acute generalized abdominal pain with sepsis abd pain spesis TECHNIQUE: Multiaxial CT images of the abdomen and pelvis were performed following the IV administration of 92 cc of Optiray, A dose lowering technique was utilized adhering to the principles of ALARA. COMPARISON STUDY: May 12, 2024 FINDINGS: The imaged lower chest unremarkable. There is mild subsegmental bibasilar atelectasis. No pneumatosis or pneumoperitoneum. Splenomegaly, 2.7 cm in length. Unremarkable pancreas and adrenal glands. Cholecystectomy. Hepatomegaly with hepatic steatosis. Patency of the hepatic and portal veins. Unremarkable right kidney. Left nephrolithiasis includes a 5 mm nonobstructing calculus of the superior pole and a 3 mm calculus of the inferior pole. The previously noted 9 mm calculus of the inferior poles no longer present. Perinephric inflammatory stranding with patchy enhancement of the left kidney. Minimal dilation of the left renal collecting system and ureter No ureteral calculi identified. Urothelial enhancement is noted within the left renal collecting system and ureter. Mild prostamegaly. Urinary bladder wall thickening with partial distention and mild intraluminal air. No lymphadenopathy. Mild atherosclerosis of the aorta. No bowel obstruction or bowel wall thickening. Colonic diverticulosis. Normal appendix. Unremarkable soft tissues. Annular disc bulging with spondylosis causes multilevel central canal or neural foraminal narrowing within the lumbar spine. IMPRESSION: 1. Minimal left-sided hydroureteronephrosis with findings suggestive of left- sided pyelonephritis and ureteritis with associated cystitis. Correlate with urinalysis. 2. Left nephrolithiasis. 3. The previously noted 9 mm left renal calculus is no longer present. No ureteral calculi identified. 4. Colonic diverticulosis. ACT 112: Negative or not required by law. The above report was generated using voice recognition software. It may contain grammatical, syntax or spelling errors. Electronically signed by: Rios Thurston M.D. 08/01/2024 1:[address] 08/02/24 07:42 CT head/brain wo con CLINICAL HISTORY: severe headache. TECHNIQUE: Multiple axial CT images of the head were obtained without contrast. A dose lowering technique was utilized adhering to the principles of ALARA. CT DOSE: 1281.91 mGy.cm COMPARISON: None FINDINGS: No intracranial hemorrhage seen. No mass effect, midline shift, or hydrocephalus. No skull fracture seen. Visualized paranasal sinuses and mastoid air cells are clear. IMPRESSION: No acute findings. ACT 112: Negative or not required by law. The above report was generated using voice recognition software. It may contain grammatical, syntax or spelling errors. Electronically signed by: Ulices Deutsch M.D. 08/02/2024 8:[address] 08/02/24 07:[address] HISTORY: Acute headache with facial pain and reported sinus disease sinus headache, pressure,fever TECHNIQUE: Multiaxial CT images of the paranasal sinuses were performed and reformatted in the coronal plane without the use of contrast. A dose lowering technique was utilized adhering to the principles of ALARA. COMPARISON: Head CT of same day FINDINGS: Frontal sinuses and frontal ethmoidal recesses are clear. Note is made of a metopic suture. Moderate mucosal thickening of the ethmoid air cells, right greater than left. Minimal mucosal thickening of the inferior right maxillary sinus. The left maxillary sinus is clear. Sphenoid sinuses and sinus outflow tracts are clear. The mastoid air cells are clear. The bilateral ostiomeatal units are patent. Minimal rightward bowing of the nasal septum. The orbits are unremarkable. IMPRESSION: 1. Mild mucosal thickening of the ethmoid air cells and inferior right maxillary sinus. 2. Patent sinus outflow tracts. ACT 112: Negative or not required by law. Electronically signed by: Rios Thurston M.D. 08/02/2024 8:33 AM Medications Administered Current Inpatient Medications Acetaminophen (Acetaminophen 500 Mg Tab) 1,000 mg PO Q8H PRN PRN Reason: Pain or fever Stop: 08/31/24 17:35 Last Admin: 08/03/24 01:59 Dose: 1,000 mg Al Hydrox/Mg Hydrox/Simethicone (Aluminum/Magnesium Susp 30 Ml Udc) 30 ml PO Q6H PRN PRN Reason: Dyspepsia Stop: 08/31/24 17:35 Atorvastatin Calcium (Atorvastatin 20 Mg Tab) 20 mg PO QAM JULIAN Stop: 09/01/24 08:59 Last Admin: 08/03/24 08:37 Dose: 20 mg Azelastine HCl (Azelastine Hcl 0.1% Nasal 200 Sprays/27,400 Mcg Btl) 1 sprays MEDARDO BID PRN PRN Reason: Congestion Stop: 08/31/24 17:35 Last Admin: 08/01/24 21:04 Dose: 1 sprays Dextrose (Dextrose 50% 50 Ml Syringe) 25 - 50 ml IV UD PRN; Protocol PRN Reason: Hypoglycemia Protocol Stop: 08/31/24 17:35 Enoxaparin Sodium (Enoxaparin Inj 40 Mg/0.4 Ml Syr) 40 mg SQ Q24H JULIAN Stop: 08/31/24 20:59 Last Admin: 08/02/24 20:05 Dose: 40 mg Fluticasone Propionate (Fluticasone Propionate Na Spr 16 Gm Btl) 2 sprays MEDARDO DAILY JULIAN Stop: 09/01/24 08:59 Last Admin: 08/03/24 08:37 Dose: 2 sprays Glucagon (Glucagon For Inj 1 Mg Vial) 1 mg SQ UD PRN; Protocol PRN Reason: Hypoglycemia Protocol Stop: 08/31/24 17:35 Glucose (Glucose 40% Gel 15 Gm Tube) 15 - 30 gm PO UD PRN; Protocol PRN Reason: Hypoglycemia Protocol Stop: 08/31/24 17:35 Glucose (Glucose 10 Tab/Tube) 4 - 8 tab PO UD PRN; Protocol PRN Reason: Hypoglycemia Protocol Stop: 08/31/24 17:35 Hydromorphone HCl (Hydromorphone Inj 0.5 Mg/0.5 Ml Syr) 1 mg IV Q3H PRN PRN Reason: Moderate-severe pain Stop: 08/16/24 07:41 Last Admin: 08/03/24 06:31 Dose: 1 mg Prochlorperazine 10 mg/ (Syringe) 10 mls @ 5 mls/min IV Q6H PRN PRN Reason: Nausea And Vomiting Stop: 08/31/24 17:35 Last Admin: 08/02/24 08:05 Dose: 5 mls/min Ertapenem (Invanz 1000mg) 1,000 mg in 10 mls @ 2 mls/min IV Q24H JULIAN Stop: 08/13/24 07:59 Last Admin: 08/03/24 08:37 Dose: 2 mls/min Potassium Chloride (K Harsh / Wtr) 10 meq in 100 mls @ 100 mls/hr IV Q1H JULIAN Stop: 08/03/24 12:14 Last Infusion: 08/03/24 10:44 Dose: 0 mls/hr Insulin Aspart (Insulin Aspart Per Unit Charge) 0 units SC ACHS JULIAN Stop: 08/31/24 17:35 Last Admin: 08/03/24 08:53 Dose: 4 units Levalbuterol HCl (Levalbuterol Tartrate 15 Gm Hfa.Aer.Ad) 2 puffs INH Q4H PRN PRN Reason: Wheezing Stop: 08/31/24 17:35 Losartan Potassium (Losartan Potassium 25 Mg Tab) 25 mg PO QAM JULIAN Stop: 09/01/24 08:59 Last Admin: 08/03/24 08:37 Dose: 25 mg Magnesium Hydroxide (Magnesium Hydroxide Susp 30 Ml Udc) 30 ml PO Q6H PRN PRN Reason: Constipation Stop: 08/31/24 17:35 Melatonin (Melatonin 3 Mg Tab) 3 mg PO HS PRN PRN Reason: Insomnia Stop: 08/31/24 17:35 Miscellaneous (Carbohydrates For Hypoglycemia ) 15 - 30 gm PO UD PRN PRN Reason: Hypoglycemia Protocol Stop: 08/31/24 17:35 Ondansetron HCl (Ondansetron Inj 2 Mg/Ml 2 Ml Vial) 4 mg IV Q6H PRN PRN Reason: Nausea Stop: 08/31/24 17:35 Last Admin: 08/03/24 06:31 Dose: 4 mg Polyethylene Glycol (Polyethylene (Miralax) 17 Gm Pack) 17 gm PO DAILY PRN PRN Reason: Constipation Stop: 08/31/24 17:35 Pseudoephedrine HCl (Pseudoephedrine Hcl 30 Mg Tab) 30 mg PO Q6H PRN PRN Reason: Sinus congestion/pressure Stop: 08/31/24 17:35 Last Admin: 08/03/24 11:23 Dose: 30 mg Tamsulosin HCl (Tamsulosin Hcl 0.4 Mg Cap) 0.4 mg PO DAILY [facility] Stop: 09/01/24 08:59 Last Admin: 08/03/24 08:37 Dose: 0.4 mg
[2024-08-03] MEDS: POTASSIUM CHLORIDE / WTR 10 MEQ/100 ML PLCT IV SCH ×2 (10:12→15:03)
--- NOTE | 2024-08-03 11:21 | Urology Progress Note ---
Date of Service August 03, 2024 Assessment & Plan (1) Pyelonephritis of left kidney: Plan: 49-year-old male admitted for left pyelonephritis after recent left ureteroscopy and stone treatment; tethered stent removed on 07/31/24. Patient afebrile, hemodynamically stable Lab work reviewedcreatinine 0.89, no leukocytosis Urine culture with 3k cfu of gram negative bacilli Blood cultures with gram negative bacilli Bio fire PCR showing Enterobacterales and ESBL E. coli, Ceftriaxone gene resistance Ceftriaxone changed to Ertapenem ID consulted Subjectively he is feeling better since antibiotic was changed No acute intervention at this time Continue with supportive care, antibiotics, and medical management per hospital medicine will follow Admission and Anticipated Discharge Date Admission Date: August 01, 2024 Subjective Patient seen and examined bedside this morning. Generally feeling better today. Occasional flank discomfort. Intermittent headache. Reports some nausea. [place] occasional sweats overnight after receiving Tylenol. Voiding spontaneously. Review of Systems Constitutional: as per Subjective / HPI Gastrointestinal: as per Subjective / HPI Genitourinary: + as per Subjective / HPI Physical Exam Constitutional: well developed and well nourished; no acute distress Respiratory: normal respiratory effort; no respiratory distress and no labored breathing Gastrointestinal (Abdomen): Inspection/Auscultation: abdomen normal to inspection Musculoskeletal: Head/Neck/Chest: normocephalic Neurologic: moves all extremities and awake Psychiatric: Orientation: alert and oriented x 3 Results & Data Vital Signs (Past 12 Hours) Vital Signs Temp Pulse Pulse Resp BP BP Pulse Ox 08/03/24 08:20 89 18 130/79 92 08/03/24 07:24 37.1 C 94 H 16 146/74 H 93 08/03/24 00:58 O2 Del Method 08/03/24 08:20 Room Air 08/03/24 07:24 Room Air 08/03/24 00:58 Room Air PG Care Time/CCT Total # of Minutes Spent Total Time Spent with Patient: Total time spent is greater than 50% in coordination of care (as documented) at patient's floor/unit and/or counseling patient: Coding Level of Care Code 99974 SUB INP/OBS CARE 06/04MIN Diagnoses Pyelonephritis of left kidney N12
--- NOTE | 2024-08-03 14:54 | Hospitalist Progress Note ---
Date of Service August 03, 2024 Assessment & Plan (1) Pyelonephritis of left kidney: (2) E coli bacteremia: (3) Headache: (4) Hypertension: Plan This patient is a 49-year-old male with a history of nephrolithiasis, HTN, DM2, HLD, vitamin D deficiency, asthma, and fatty liver who recently had left ureteral stent exchange and laser lithotripsy of a ureteral stone on 07/28. He presents to the ER with 3 days of fevers/chills, intractable nausea/vomiting, severe left flank pain, and posterior as well as frontal headache. He removed his left ureteral stent 1 day prior and this did help with some of the spasm pains he was having in the left flank. He is admitted for left-sided acute pyelonephritis and now with ESBL E. coli bacteremia. #Acute left pyelonephritis/UTI/recent ureterolithiasis with ureteral stent removal/N/V/ESBL E. coli bacteremia-with left flank pain, pyelonephritis and cystitis seen on CT A/P, recent left ureteral stone treatment and stent removal. Was treated with 2 doses of Cipro prior to admission hence the lack of bacteria on the UA but still with significant leukocyte esterase and WBCs as well as some blood. With fevers but no leukocytosis, normal lactate, and procalcitonin elevated at 5.5. He also has a possible acute sinusitis with headache which may be related also to dehydration and infection. N/V related to pyelonephritis and pain is now improving with IV compazine and IVFs. Consult urology given recent procedures and ongoing mild left ureteral hydronephrosis and infection--> appreciated-recommends ongoing treatment as no obstruction, no need for intervention BCxs now with ESBL E. coli bacteremia. Fevers are resolving. Nausea improving -Change ceftriaxone to ertapenem -continue to follow final sensitivities on BCxs -consult ID for further recommendations -IV Zofran and Compazine as needed for nausea; Tylenol and IV Dilaudid as needed for pain and headache -continue to follow urine and blood cultures -Continue home tamsulosin -f/u stone analysis when available #Acute sinusitis/Headache-headache could be related to sinusitis seen on CT sinuses, but could be from bacteremia, fevers, dehydration. Hydrated with IVFs. CT head otherwise neg. -continue treating for infection with IV antibiotics -continue on Sudafed as needed for sinus congestion #HTN/HLD-no acute issues -Continue home atorvastatin, losartan #DM2/hypogonadism-no acute issues, has been on the same dose of Trulicity for many years and last dose was on 07/31. Also takes IM testosterone. Hgb A1c well-controlled 6.8% very recently -continue NovoLog supplemental insulin -Hold home Trulicity and testosterone #Vitamin D deficiency-no acute issues -Hold home vitamin D #Fatty liver/mild hyperbilirubinemia/Mild hepatosplenomegaly-T. bili mildly elevated 1.4 with evidence of fatty liver and mild splenomegaly on CT A/P. Has a history of cholecystectomy. No RUQ pain. No EtOH use. TBili down to normal now -Needs weight loss, low carbohydrate diet -Follow LFTs as outpt #Mild asthma/FERNANDEZ/allergic rhinitis-no acute issues except acute sinusitis. CXR negative -Levalbuterol as needed -Continue Flonase and azelastine nasal sprays -antibiotics for acute sinusitis as above -CPAP at bedtime DVT prophylaxis-Lovenox SQ, SCDs Disposition-continued stay medical/surgical unit, possible discharge to home on 08/04 if BCxs sensitivities return and can use po abx vs able to set up home IV abx Admission and Anticipated Discharge Date Admission Date: August 01, 2024 Subjective Still having a bad headache, both frontal and occipital, improves somewhat with pain medicine and then returns. Still with some left flank pain but overall improving. Tolerating liquids diet but not yet ready for solid foods. Moving bowels, no diarrhea. Is sweating a lot today. I discussed his care with Urology POLICE INVESTIGATOR and with at bedside. Physical Exam Constitutional: WD/WN, vitals as above Neck: trachea midline, no thyromegaly Respiratory: normal respiratory effort, lungs clear to auscultation Cardiovascular: RRR, no murmur, no edema Chest (Breasts): Chest: normal inspection of chest Gastrointestinal (Abdomen): Inspection/Auscultation: abdomen normal to inspection and normal bowel sounds; abdomen not distended P ercussion/Palpation: abdomen soft; abdomen nontender Musculoskeletal: Extremities: extremities normal to inspection; no cyanosis and no clubbing Skin: no rashes Neurologic: moves all extremities and awake; no focal motor deficits Psychiatric: A+Ox3, euthymic affect Lymphatic: no lymphedema Results & Data Results & Data Vital Signs (Past 12 Hours) Vital Signs Temp Pulse Pulse Resp BP BP Pulse Ox 08/03/24 13:44 37.3 C 87 16 138/84 94 08/03/24 08:20 89 18 130/79 92 08/03/24 07:24 37.1 C 94 H 16 146/74 H 93 O2 Del Method 08/03/24 13:44 Room Air 08/03/24 08:20 Room Air 08/03/24 07:24 Room Air Laboratory Results CBC, BMP, Blood and urine cxs reviewed PG Care Time/CCT Total # of Minutes Spent Total Time Spent with Patient: Total time spent is greater than 50% in coordination of care (as documented) at patient's floor/unit and/or counseling patient: Coding Level of Care Code 77774 SUB INP/OBS CARE 3/50MIN Diagnoses Pyelonephritis of left kidney N12 E coli bacteremia R78.81; B96.20 Headache R51.9 Primary hypertension I10 Hypertension type: primary hypertension (4) Hypertension Hypertension type: primary hypertension Qualified Code(s): I10 - Essential (primary) hypertension
[2024-08-03] MEDS: diphenhydrAMINE 50 MG/ML VIAL IV STA (15:30)
[2024-08-03] MEDS: METOCLOPRAMIDE HCL INJ 5 MG/ML 2 ML VIAL IV STA (15:31)
[2024-08-04] MEDS: LORATADINE 10 MG TAB PO PRN (04:17)
[2024-08-04 07:15] VITALS: BP 125/81; PULSE 80; RESP 16; TEMP 98.1; O2SAT 96
[2024-08-04 07:16] LABS: Basophils # (auto) 0.02 K/uL (0.00-0.20); Basophils % (auto) 0.2 %; Eosinophils # (auto) 0.15 K/uL (0.00-0.50); Eosinophils % (auto) 1.5 %; Hematocrit (blood only) 35.7 % (42.0-52.0); Hemoglobin 12.1 g/dl (14.0-18.0); Immature Granulocytes # (auto) 0.08 K/uL (0.01-0.20); Immature Granulocytes % (auto) 0.8 %; Lymphocytes # (auto) 1.43 K/uL (1.20-3.40); Lymphocytes % (auto) 14.3 %; Mean Corpuscular Hemoglobin 28.3 pg (25.0-34.0); Mean Corpuscular Hgb Conc 33.9 g/dL (32.0-36.0); Mean Corpuscular Volume 83.6 fL (80.0-100.0); Mean Platelet Volume 9.6 fL (9.4-12.4); Monocytes # (auto) 0.88 K/uL (0.11-0.59); Monocytes % (auto) 8.8 %; Neutrophils # (auto) 7.44 K/uL (1.40-6.50); Neutrophils % (auto) 74.4 %; Platelet Count 243 K/uL (130-400); RDW Coefficient of Variation 14.1 % (11.5-14.5); RDW Standard Deviation 43.2 fL (36.4-46.3); Red Blood Count 4.27 M/uL (4.70-6.10)
[2024-08-04 07:37] LABS: Albumin Level 3.3 gm/dl (3.4-5.0); BUN Creatinine Ratio 13.1 (10-20); Bilirubin,Total 0.7 mg/dl (0.2-1.0); Calcium 8.5 mg/dl (8.6-10.3); Creatinine Clr Calc Pharmacy 149.9 ml/min; Globulin 3.3 gm/dl (2.5-4.0); Magnesium 2.2 mg/dl (1.7-2.4); Potassium 3.5 mmol/L (3.5-5.1); Total Protein 6.6 gm/dl (6.0-8.3)
--- NOTE | 2024-08-04 10:34 | Infectious Disease Progress Nt ---
Date of Service August 04, 2024 Assessment & Plan (1) Pyelonephritis of left kidney: (2) E coli bacteremia: Plan Problems: #L pyelonephritis/ureteritis #L hydroureteronephrosis #E coli bacteremia #Nephrolithiasis s/p L ureteral stent (06/30), L ureteral stent exchange and laser lithotripsy (07/28) #Antibiotic allergies: penicillins (hives, nausea), vanc (hives, vomiting) Micro: 08/01 BCx x2: ESBL E coli in 06/03 bottles (S cipro, levo, TMP/SMX, erta) 08/01 UCx: 3000 cfu/ml GNRs Abx: Ertapenem 08/03 - present Ceftriaxone 08/01 - 08/02 49 yo M with history of HTN, DM2, HLD, fatty liver, nephrolithiasis s/p L ureteral stent (06/30/24), then L ureteral stent exchange and laser lithotripsy (07/28/24) who presented on 08/01 with 3 days of fevers, chills, intractable N/V, found to have L hydroureteronephrosis with L pyelonephritis/ureteritis, c/b ESBL E coli bacteremia. Pt states he took an antibiotic prior to removal of his ureteral stent on 07/31, but forgot the name of it, perhaps TMP/SMX. He got in contact with Urology on Thursday night and was prescribed ciprofloxacin, which he took. On presentation, pt was afebrile, HR 106. Labs showed WBC 8.39, procalcitonin 5.53. UA with 21-50 WBCs. Blood cultures collected. CT AP with IV contrast with minimal L sided hydroureteronephrosis with findings suggestive of L sided pyelonephritis and ureteritis with associated cystitis, L nephrolithiasis. Pt initially started on ceftriaxone. Blood cultures grew GNRs in 1/4 sets, with Biofire + ESBL E coli, so antibiotics were switched to ertapenem on 08/03. Recommendations: - Can continue ertapenem 1 g q24h while inpatient - On discharge, can transition to TMP/SMX 2 DS tabs PO BID to complete a 7 day course through 08/09/[address] Mendez. Will sign off. Admission and Anticipated Discharge Date Admission Date: August 01, 2024 Subjective This patient recommendation is based on a telemedicine consult request which was completed asynchronously through chart review and information provided by the primary physician. The patient was not seen or examined today. The evaluation is consultative in nature and all patient care and treatment decisions can either be accepted or rejected by the patient's primary hospital-based treating physician using their own independent medical judgment for their patient. Time Spent Reviewing Chart: 11 - 20 minutes No acute events Tmax 37.9 Results & Data Vital Signs (Past 12 Hours) Vital Signs Temp Pulse Resp BP Pulse Ox O2 Del Method 08/04/24 07:14 36.7 C 80 16 125/81 96 Room Air 08/04/24 00:18 36.8 C Laboratory Results Short CBC 08/04/24 Range/Units 07:00 WBC 10.00 (4.8-10.8) K/ul Hgb 12.1 L (14.0-18.0) g/dl Hct 35.7 L (42.0-52.0) % Plt Count 243 (130-400) K/uL BMP 08/04/24 07:00 Sodium 138 Potassium 3.5 Chloride 101 Carbon Dioxide 29 BUN 11 Creatinine 0.84 Glucose 146 H Calcium 8.5 L Liver Function 08/04/24 Range/Units 07:00 Total Bilirubin 0.7 (0.2-1.0) mg/dl AST 28 (13-39) U/L ALT 33 (7-52) U/L Alkaline Phosphatase 61 (34-104) U/L Albumin 3.3 L (3.4-5.0) gm/dl Medications Administered Current Inpatient Medications Acetaminophen (Acetaminophen 500 Mg Tab) 1,000 mg PO Q8H PRN PRN Reason: Pain or fever Stop: 08/31/24 17:35 Last Admin: 08/04/24 00:17 Dose: 1,000 mg Al Hydrox/Mg Hydrox/Simethicone (Aluminum/Magnesium Susp 30 Ml Udc) 30 ml PO Q6H PRN PRN Reason: Dyspepsia Stop: 08/31/24 17:35 Atorvastatin Calcium (Atorvastatin 20 Mg Tab) 20 mg PO QAM JULIAN Stop: 09/01/24 08:59 Last Admin: 08/04/24 08:40 Dose: 20 mg Azelastine HCl (Azelastine Hcl 0.1% Nasal 200 Sprays/27,400 Mcg Btl) 1 sprays MEDARDO BID PRN PRN Reason: Congestion Stop: 08/31/24 17:35 Last Admin: 08/01/24 21:04 Dose: 1 sprays Dextrose (Dextrose 50% 50 Ml Syringe) 25 - 50 ml IV UD PRN; Protocol PRN Reason: Hypoglycemia Protocol Stop: 08/31/24 17:35 Enoxaparin Sodium (Enoxaparin Inj 40 Mg/0.4 Ml Syr) 40 mg SQ Q24H JULIAN Stop: 08/31/24 20:59 Last Admin: 08/03/24 20:50 Dose: 40 mg Fluticasone Propionate (Fluticasone Propionate Na Spr 16 Gm Btl) 2 sprays MEDARDO DAILY JULIAN Stop: 09/01/24 08:59 Last Admin: 08/04/24 07:34 Dose: 2 sprays Glucagon (Glucagon For Inj 1 Mg Vial) 1 mg SQ UD PRN; Protocol PRN Reason: Hypoglycemia Protocol Stop: 08/31/24 17:35 Glucose (Glucose 40% Gel 15 Gm Tube) 15 - 30 gm PO UD PRN; Protocol PRN Reason: Hypoglycemia Protocol Stop: 08/31/24 17:35 Glucose (Glucose 10 Tab/Tube) 4 - 8 tab PO UD PRN; Protocol PRN Reason: Hypoglycemia Protocol Stop: 08/31/24 17:35 Hydromorphone HCl (Hydromorphone Inj 0.5 Mg/0.5 Ml Syr) 1 mg IV Q3H PRN PRN Reason: Moderate-severe pain Stop: 08/16/24 07:41 Last Admin: 08/03/24 20:50 Dose: 1 mg Prochlorperazine 10 mg/ (Syringe) 10 mls @ 5 mls/min IV Q6H PRN PRN Reason: Nausea And Vomiting Stop: 08/31/24 17:35 Last Admin: 08/02/24 08:05 Dose: 5 mls/min Ertapenem (Invanz 1000mg) 1,000 mg in 10 mls @ 2 mls/min IV Q24H JULIAN Stop: 08/13/24 07:59 Last Admin: 08/04/24 07:34 Dose: 2 mls/min Insulin Aspart (Insulin Aspart Per Unit Charge) 0 units SC ACHS JULIAN Stop: 08/31/24 17:35 Last Admin: 08/04/24 08:41 Dose: 2 units Levalbuterol HCl (Levalbuterol Tartrate 15 Gm Hfa.Aer.Ad) 2 puffs INH Q4H PRN PRN Reason: Wheezing Stop: 08/31/24 17:35 Loratadine (Loratadine 10 Mg Tab) 10 mg PO DAILY PRN PRN Reason: Allergy Symptoms Stop: 09/03/24 08:59 Last Admin: 08/04/24 04:17 Dose: 10 mg Losartan Potassium (Losartan Potassium 25 Mg Tab) 25 mg PO QAM JULIAN Stop: 09/01/24 08:59 Last Admin: 08/04/24 08:40 Dose: 25 mg Magnesium Hydroxide (Magnesium Hydroxide Susp 30 Ml Udc) 30 ml PO Q6H PRN PRN Reason: Constipation Stop: 08/31/24 17:35 Melatonin (Melatonin 3 Mg Tab) 3 mg PO HS PRN PRN Reason: Insomnia Stop: 08/31/24 17:35 Miscellaneous (Carbohydrates For Hypoglycemia ) 15 - 30 gm PO UD PRN PRN Reason: Hypoglycemia Protocol Stop: 08/31/24 17:35 Ondansetron HCl (Ondansetron Inj 2 Mg/Ml 2 Ml Vial) 4 mg IV Q6H PRN PRN Reason: Nausea Stop: 08/31/24 17:35 Last Admin: 08/04/24 07:34 Dose: 4 mg Polyethylene Glycol (Polyethylene (Miralax) 17 Gm Pack) 17 gm PO DAILY PRN PRN Reason: Constipation Stop: 08/31/24 17:35 Pseudoephedrine HCl (Pseudoephedrine Hcl 30 Mg Tab) 30 mg PO Q6H PRN PRN Reason: Sinus congestion/pressure Stop: 08/31/24 17:35 Last Admin: 08/03/24 11:23 Dose: 30 mg Tamsulosin HCl (Tamsulosin Hcl 0.4 Mg Cap) 0.4 mg PO DAILY JULIAN Stop: 09/01/24 08:59 Last Admin: 08/04/24 08:40 Dose: 0.4 mg
--- NOTE | 2024-08-04 11:18 | Urology Progress Note ---
<Statement entered by Ambrose Motta MD - 08/04/24 14:25> I have seen and discussed Mr. Mccoy's case with ALANNA Fink and agree with the above documentation. He is feeling much better on ertapenem, Cultures suggest he can be transitioned to Bactrim. He tells me the plan is for discharge on another several days of oral antibiotics. We reviewed his CT scan. I suspect the calcifications in his kidney represent debris from laser lithotripsy rather than a true stone. We also discussed the possibility of an intraparenchymal stone. Will further evaluate with ultrasound in 3 months. -Ambrose Motta MD. Date of Service August 04, 2024 Assessment & Plan (1) Pyelonephritis of left kidney: Plan: 49-year-old male admitted for left pyelonephritis after recent left ureteroscopy and stone treatment 07/28/24; tethered stent removed on 07/31/24. Patient afebrile, hemodynamically stable Lab work reviewedcreatinine 0.84, no leukocytosis Urine culture with 3k cfu of gram negative bacilli Blood cultures with gram negative bacilli Bio fire PCR showing Enterobacterales and ESBL E. coli, Ceftriaxone gene resistance Currently on Ertapenem ID on board Subjectively he is feeling better and denying any pain Long discussion about CT scan which shows nonobstructing left nephrolithiasis- small stones (3-4mm) or possibly dust from previous surgery No intervention at this time Stone analysis still pending Continue with supportive care, antibiotics, and medical management per hospital medicine Urology will arrange outpatient follow-up will sign out Admission and Anticipated Discharge Date Admission Date: August 01, 2024 Subjective Patient seen and examined bedside this morning. Sitting comfortably at side of bed. "Feeling 1000% better" Denies flank discomfort Minimal left lower abdominal pressure Chills overnight Voiding spontaneously Denies dysuria, gross hematuria, fevers, nausea, vomiting Review of Systems Constitutional: as per Subjective / HPI Genitourinary: + as per Subjective / HPI Physical Exam Constitutional: well developed and well nourished; no acute distress Respiratory: normal respiratory effort and able to speak in complete sentences Musculoskeletal: Extremities: extremities normal to inspection Psychiatric: Orientation: alert and oriented x 3 Results & Data Vital Signs (Past 12 Hours) Vital Signs Temp Pulse Resp BP Pulse Ox O2 Del Method 08/04/24 07:14 36.7 C 80 16 125/81 96 Room Air 08/04/24 00:18 36.8 C PG Care Time/CCT Total # of Minutes Spent Total Time Spent with Patient: Total time spent is greater than 50% in coordination of care (as documented) at patient's floor/unit and/or counseling patient: Coding Level of Care Code 47850 SUB INP/OBS CARE 3/50MIN Diagnoses Pyelonephritis of left kidney N12
--- NOTE | 2024-08-04 12:32 | Electrocardiogram Report ---
Test Reason : Blood Pressure : */* mmHG Vent. Rate : 80 BPM Atrial Rate : 80 BPM P-R Int : 162 ms QRS Dur : 164 ms QT Int : 450 ms P-R-T Axes : 23 7 6 degrees QTcB Int : 519 ms Normal sinus rhythm Right bundle branch block Abnormal ECG When compared with ECG of 01-Aug-2024 11:11, No significant change Confirmed by Jaswant Zavaleta ([id number]) on 08/04/2024 12:32:10 PM Referred By: REFERRED SELF Confirmed By: Jaswant Zavaleta
[2024-08-04] MEDS: PNEUMOCOCCAL VACCINE (PCV20) 20-VAL CONJ-DIP CRM/PF 0.5 ML SYR IM ONE (12:37)
--- NOTE | 2024-08-04 12:48 | Discharge Summary ---
Discharge Summary Date of Service August 04, 2024 Principal Dx & Hospital Course #1 = Principal Diagnosis (1) Pyelonephritis of left kidney: (2) E coli bacteremia: (3) Headache: (4) Hypertension: Plan This patient is a 49-year-old male with a history of nephrolithiasis, HTN, DM2, HLD, vitamin D deficiency, asthma, and fatty liver who recently had left ureteral stent exchange and laser lithotripsy of a ureteral stone on 07/28. He presents to the ER with 3 days of fevers/chills, intractable nausea/vomiting, severe left flank pain, and posterior as well as frontal headache. He removed his left ureteral stent 1 day prior and this did help with some of the spasm pains he was having in the left flank. He is admitted for left-sided acute pyelonephritis and now with ESBL E. coli bacteremia. #Acute left pyelonephritis/UTI/recent ureterolithiasis with ureteral stent removal/N/V/ESBL E. coli bacteremia-with left flank pain, pyelonephritis and cystitis seen on CT A/P, recent left ureteral stone treatment and stent removal. Was treated with 2 doses of Cipro prior to admission hence the lack of bacteria on the UA but still with significant leukocyte esterase and WBCs as well as some blood. With fevers but no leukocytosis, normal lactate, and procalcitonin elevated at 5.5. He also has a possible acute sinusitis with headache which may be related also to dehydration and infection. N/V related to pyelonephritis and pain is now much improved with IV dilaudid. Consulted urology given recent procedures and ongoing mild left ureteral hydronephrosis and infection--> appreciated-recommends ongoing treatment as no obstruction, no need for intervention BCxs now with ESBL E. coli bacteremia sensitive to Cipro and Bactrim. Ur cx also with 3000 CFU GNR (no ID done). Fevers and nausea are resolved, migraine resolved -received ceftriaxone x 2 doses and then switched to IV ertapenem--> finish out course of Bactrim DS 2 tabs po bid x total 7 days (needs treatment through 08/09/24) -consult ID appreciated -continue tylenol as needed for pain after discharge -Continue home tamsulosin -f/u stone analysis when available after discharge, f/u with Urology #Acute sinusitis/Headache-headache could be related to sinusitis seen on CT sinuses, but could be from bacteremia, fevers, dehydration. He has a h/o migraines in younger age. Hydrated with IVFs. CT head otherwise neg. Migraine resolved with abortive cocktail of reglan and benadryl -treated for infection with IV antibiotics -gave Rx for small supply of reglan and benadryl for after discharge for prn use #HTN/HLD-no acute issues -Continue home atorvastatin, losartan #DM2/hypogonadism-no acute issues, has been on the same dose of Trulicity for many years and last dose was on 07/31. Also takes IM testosterone. Hgb A1c well-controlled 6.8% very recently -received NovoLog supplemental insulin here and resume Trulicity on discharge #Vitamin D deficiency-no acute issues -resume home vitamin D on dc #Fatty liver/mild hyperbilirubinemia/Mild hepatosplenomegaly-T. bili mildly elevated 1.4 with evidence of fatty liver and mild splenomegaly on CT A/P. Has a history of cholecystectomy. No RUQ pain. No EtOH use. TBili down to normal after admission -Needs weight loss, low carbohydrate diet -Follow LFTs as outpt #Mild asthma/FERNANDEZ/allergic rhinitis-no acute issues except acute sinusitis. CXR negative -Levalbuterol as needed -Continue Flonase and azelastine nasal sprays -antibiotics for acute sinusitis as above -CPAP at bedtime DVT prophylaxis-Lovenox SQ, SCDs Disposition-dc to home Notes For Next Care Provider F/u kidney stone analysis Medication Changes From Visit Added Bactrim DS 2 tabs po bid x 5.5 more days Added reglan 10mg po q6h along with benadryl 25mg po q6h prn migraine headache Admission HPI Per Admitting Provider This patient is a 49-year-old male with a history of nephrolithiasis, HTN, DM2, HLD, vitamin D deficiency, and fatty liver who recently had left ureteral stent exchange and laser lithotripsy of a ureteral stone on 07/28. He presents to the ER with 3 days of fevers/chills, intractable nausea/vomiting, left flank pain, and posterior headache as well as frontal headache. He removed his left ureteral stent 1 day prior and this did help with some of the spasm pains he was having in the left flank. He has been taking ibuprofen and Tylenol [id number] for the fevers and pain as well as headache which has helped keep the temperature down but not helping much with the pain. He has not been able to eat more than 1 piece of dry toast in the last 48 hours and keeps down small sips of water at times. He is making urine but does have hematuria. He is moving his bowels and no diarrhea present. The urologist called him in [facility] of which he took 2 doses prior to presentation in the ER. He is blowing some mucus out of his nose. In the ER, he was given IV morphine, Zofran, 2 L IV fluids, IV Toradol, Phenergan, and ceftriaxone. He was found to have an abnormal urinalysis consistent with infection. CT A/P showed left pyelonephritis and mild left ureteral hydronephrosis; CXR negative. He will be admitted for left-sided acute pyelonephritis. Discharge Exam Constitutional WD/WN, vitals as above Neck trachea midline, no thyromegaly Respiratory normal respiratory effort, lungs clear to auscultation Cardiovascular RRR, no murmur, no edema Chest (Breasts) Chest: normal inspection of chest Gastrointestinal (Abdomen) Inspection/Auscultation: abdomen normal to inspection and normal bowel sounds; abdomen not distended Percussion/Palpation: abdomen soft Skin no rashes, warm and dry no rashes Neurologic moves all extremities and awake; no focal motor deficits Psychiatric A+Ox3, euthymic affect Discharge Plan Discharge Items Patient Disposition: Home - Self-Care Reason For Visit: PYELONEPHRITIS Discharge Diagnosis: Acute pyelonephritis ESBL E. coli bacteremia Migraine headache Activity: As commented below Bathing: No limitations Exercise/Sports: Wait until after follow-up appointment Driving/Machine Use: No limitations Non-emergency contact: Primary Care Provider and Urologist Call non-emergency contact if: you have any medication questions, your symptoms worsen, your pain is not controlled, you have a fever and your temperature is above 101 Follow-up/Referrals: Trang Zuniga CRNP [Primary Care Provider] - (Follow up within 1-2 weeks) Diet: Carb Consistent or DM2 Addtl Attending Provider Instructions: Please finish out 5 1/2 more days of an antibiotic called Bactrim DS 2 tablets twice a day for your blood stream and kidney infection. You can take tylenol as needed for pain or fever. If you have recurrence of your migraine, you can take metoclopramide along with Benadryl. For your fatty liver, please work on eating a low carbohydrate diet and weight loss. You can follow up with a GI specialist for this. Follow up as directed with the Urologist for your kidney stones. Pending Studies at Discharge: Yes (final urine culture) Stand-Alone Forms: My [facility], Work/School Release Medications and DC Order Prescriptions: New sulfamethoxazole-trimethoprim [Bactrim DS] 800-160 mg tablet 2 tab PO BID Qty: 22 0RF metoclopramide HCl [Reglan] 10 mg tablet 10 mg PO Q6H PRN (Reason: migraine headache) Qty: 10 0RF Rx Instructions: Must take together with benadryl diphenhydramine HCl [Benadryl] 25 mg capsule 25 mg PO Q6H PRN (Reason: migraine headache) Qty: 10 0RF Rx Instructions: Must take with the reglan Continued tamsulosin 0.4 mg capsule 0.4 mg PO DAILY Qty: 30 11RF azelastine 137 mcg (0.1 %) spray,non-aerosol 1 spray intranasal BID PRN (Reason: Congestion) Rx Instructions: administer into each nostril ergocalciferol (vitamin D2) [Vitamin D2] 1,250 mcg (50,000 unit) capsule 1,250 mcg PO WK Qty: 10 0RF Rx Instructions: Thursday atorvastatin 20 mg tablet 20 mg PO QAM losartan 25 mg tablet 25 mg PO QAM fluticasone propionate 50 mcg/actuation [place],Suspension 2 spray INTRANASAL DAILY Rx Instructions: administer into each nostril acetaminophen [Tylenol Ex Str Rapid Release] 500 mg Tablet 500 mg PO Q6H PRN (Reason: Pain) levalbuterol tartrate 45 mcg/actuation HFA aerosol inhaler 1 - 2 puff INHALATION Q4H PRN (Reason: Wheezing) testosterone cypionate 100 mg/mL oil 100 mg subcut WK Rx Instructions: Thursday Trulicity 0.75 mg/0.5 mL pen injector 0.75 mg subcut WK Patient Comments: takes sundays Rx Instructions: Thursday Changed ibuprofen 200 mg Tablet 600 mg PO Q6H PRN (Reason: Pain) Qty: 30 0RF Rx Instructions: OTC Discontinued ciprofloxacin HCl [Cipro] 500 mg tablet 500 mg PO BID Qty: 14 0RF Rx Instructions: Start Date 07/31/24 x7 day supply Discharge Orders: Discharge Order (Routine); Ordered 08/04/24 Ordered By: Jena Mendez Admission Data Admit Date/Time: 08/01/24 14:51 Attending Provider: Jena Mendez Admit Provider: Jena Mendez Primary Care Provider: Trang Zuniga Other Providers: Jena Mendez; Ambrose Mot[facility] Stay Data Consultations 08/01/24 13:30 ED Decision to Admit Stat 08/01/24 13:34 Consult Urology Routine 08/03/24 07:23 Consult Infectious Diseases Routine Diagnostic Imagining Performed 08/01/24 11:07 CT abd pelvis IV con only Stat 08/02/24 07:42 CT head/brain wo con Stat 08/02/24 07:52 CT sinus wo con Urgent Pending Results Patient Have Any Pending Studies at Discharge: Yes (final urine culture) Discharge Instructions Given to Patient (Per Discharging Provider) Please finish out 5 1/2 more days of an antibiotic called Bactrim DS 2 tablets twice a day for your blood stream and kidney infection. You can take tylenol as needed for pain or fever. If you have recurrence of your migraine, you can take metoclopramide along with Benadryl. For your fatty liver, please work on eating a low carbohydrate diet and weight loss. You can follow up with a GI specialist for this. Follow up as directed with the Urologist for your kidney stones. Total Time Total Time Spent Total Time Spent (In Minutes): 35 min Total Time Includes: Examination of the Patient, Discharge Planning, Medication Reconciliation and Communication With Other Providers (Infectious DIsease) Coding Level of Care Code 73359 INP/OBS DISCH >30 MIN Diagnoses Pyelonephritis of left kidney N12 E coli bacteremia R78.81; B96.20 Headache R51.9 Primary hypertension I10 Hypertension type: primary hypertension
== END 2024-08-04 14:42 | disposition home or self-care (01) | DRG 690 ==
LOC: SUATTDRO → ED 10:40 → EDINP 14:51 → 2S 17:09 → 3W 08-02 13:26
DX: Z79.85 Long-term (current) use of injectable non-insulin antidiabetic drugs; Z88.1 Allergy status to other antibiotic agents; E11.9 Type 2 diabetes mellitus without complications; J01.90 Acute sinusitis, unspecified; J45.909 Unspecified asthma, uncomplicated; E29.1 Testicular hypofunction; Z88.0 Allergy status to penicillin; Z87.891 Personal history of nicotine dependence; G43.909 Migraine, unspecified, not intractable, without status migrainosus; E87.6 Hypokalemia; G47.33 Obstructive sleep apnea (adult) (pediatric); I10 Essential (primary) hypertension; N13.30 Unspecified hydronephrosis; E55.9 Vitamin D deficiency, unspecified; K76.0 Fatty (change of) liver, not elsewhere classified; E78.5 Hyperlipidemia, unspecified; Z79.899 Other long term (current) drug therapy; Z87.442 Personal history of urinary calculi; N10 Acute pyelonephritis; B96.20 Unspecified Escherichia coli [E. coli] as the cause of diseases classified elsewhere; Z79.890 Hormone replacement therapy